=== PATIENT | female | born 1965 | race Caucasian/White ===

== ENCOUNTER 2016-08-18 23:44 | Emergency (ER) | payer BC ==
--- NOTE | 2016-08-18 23:58 | ER Document Report ---
ED Medical Screen (RME) - General Chief Complaint: Accidental Overdose Stated Complaint: POSSIBLE ACCIDENTAL OVERDOSE Notes: Pt reports she took a total of 58 units of novulog by 2315. (8 units at 2300, 50 at 2315) She was supposed to take lantus 50 units. Patient asymptomtic at this time. TRAVEL OUTSIDE OF THE [place] IN LAST 30 DAYS: No - Related Data Allergies/Adverse Reactions: No Known Allergies Allergy (Verified 06/29/15 13:26) Past Medical History - Past Medical History Cardiac Medical History: Reports: Hx Hypertension Endocrine Medical History: Reports: Hx Diabetes Mellitus Type 2 Past Surgical History: Reports: Hx Appendectomy - Immunizations Hx Diphtheria, Pertussis, Tetanus Vaccination: No Physical Exam - Vital signs Vitals: Temp Pulse Resp BP Pulse Ox 98.9 F 70 20 119/68 93 08/18/16 23:49 08/18/16 23:49 08/18/16 23:49 08/18/16 23:49 08/18/16 23:49 Course - Vital Signs Vital signs: Temp Pulse Resp BP Pulse Ox 98.9 F 70 20 119/68 93 08/18/16 23:49 08/18/16 23:49 08/18/16 23:49 08/18/16 23:49 08/18/16 23:49 - Laboratory Laboratory results interpreted by me: 08/19/16 00:18 POC Glucose 201 H
--- NOTE | 2016-08-19 04:14 | ER Document Report ---
ED General - General Chief Complaint: Accidental Overdose Stated Complaint: POSSIBLE ACCIDENTAL OVERDOSE Notes: Patient is a 51-year-old female past medical history of type II diabetes with insulin dependency presents after accidentally self administering 50 units of NovoLog just prior to arrival. Patient states this is a mistake and she thought she was giving herself Lantus. She denies any symptoms at time of arrival. States that she drank a can of soda and ate a candy bar after realizing her mistake. She has never done for that this past and states that it was an honest mistake. She came to the emergency department as she did not want to go to bed as she lives alone is worried what would happen by herself. She has not contacted her primary care physician regarding today's concerns. TRAVEL OUTSIDE OF THE [place] IN LAST 30 DAYS: No - Related Data Allergies/Adverse Reactions: No Known Allergies Allergy (Verified 06/29/15 13:26) Past Medical History - General Information source: Patient - Social History Smoking Status: Current Every Day Smoker Frequency of alcohol use: None Drug Abuse: None Lives with: Alone Family History: Reviewed & Not Pertinent, Other - Mother with PE and father with CHF - Past Medical History Cardiac Medical History: Reports: Hx Hypertension Endocrine Medical History: Reports: Hx Diabetes Mellitus Type 2 Past Surgical History: Reports: Hx Appendectomy - Immunizations Hx Diphtheria, Pertussis, Tetanus Vaccination: No Review of Systems - Review of Systems Notes: Constitutional: Negative for fever. HENT: Negative for sore throat. Eyes: Negative for visual changes. Cardiovascular: Negative for chest pain. Respiratory: Negative for shortness of breath. Gastrointestinal: Negative for abdominal pain, vomiting or diarrhea. Genitourinary: Negative for dysuria. Musculoskeletal: Negative for back pain. Skin: Negative for rash. Neurological: Negative for headaches, weakness or numbness. 10 point ROS negative except as marked above and in HPI. Physical Exam - Vital signs Vitals: Temp Pulse Resp BP Pulse Ox 98.9 F 70 20 119/68 93 08/18/16 23:49 08/18/16 23:49 08/18/16 23:49 08/18/16 23:49 08/18/16 23:49 Interpretation: Normal Notes: PHYSICAL EXAMINATION: GENERAL: Well-appearing, well-nourished and in no acute distress. HEAD: Atraumatic, normocephalic. EYES: Pupils equal round and reactive to light, extraocular movements intact, sclera anicteric, conjunctiva are normal. ENT: nares patent, oropharynx clear without exudates. Moist mucous membranes. NECK: Normal range of motion, supple without lymphadenopathy LUNGS: Breath sounds clear to auscultation bilaterally and equal. No wheezes rales or rhonchi. HEART: Regular rate and rhythm without murmurs ABDOMEN: Soft, nontender, normoactive bowel sounds. No guarding, no rebound. No masses appreciated. EXTREMITIES: Normal range of motion, no pitting or edema. No cyanosis. NEUROLOGICAL: No focal neurological deficits. Moves all extremities spontaneously and on command. PSYCH: Normal mood, normal affect. SKIN: Warm, Dry, normal turgor, no rashes or lesions noted. Course - Re-evaluation Re-evalutation: 08/19/16 04:11 Patient presents with concerns of having axilla taken 50 units of NovoLog prior to arrival. States she met take her Lantus but realized afterwards it was her NovoLog. She denies any symptoms at time of arrival. We have been continuing [id number] glucose checks every 30 minutes. Patient's initial blood glucose is 282 over the course of 90 minutes did decrease into the low 100s. She did receive a meal tray here with return of her blood sugar to 151. Will continue to obtain every 30 minute Accu-Cheks to monitor for an abrupt decrease in her blood glucose. She'll be observed overnight to ensure that she does not go home and have an abrupt decrease in blood glucose. Care has been transferred to Dr. Olivares at this time. - Vital Signs Vital signs: Temp Pulse Resp BP Pulse Ox 98.9 F 70 20 119/68 93 08/18/16 23:49 08/18/16 23:49 08/18/16 23:49 08/18/16 23:49 08/18/16 23:49 - Laboratory Laboratory results interpreted by me: 08/19/16 08/19/16 08/19/16 00:18 01:20 03:06 POC Glucose 201 H 132 H 116 H 08/19/16 03:49 POC Glucose 151 H Discharge - Discharge Clinical Impression: Medication error, Hypoglycemia Condition: Fair Disposition: HOME, SELF-CARE Additional Instructions: Please follow-up with your primary care physician. Return if you develop any symptoms that are concerning to you. Please continue to check your blood sugar approximately every 2 hours later home. Please be sure to always read the label insulin prior to administering it to yourself.
[2016-08-19 06:43] VITALS: BP 112/88
== END 2016-08-19 06:05 | disposition home or self-care (01) ==
LOC: ER 23:44
DX: E11.649 Type 2 diabetes mellitus with hypoglycemia without coma (principal); Z79.4 Long term (current) use of insulin; F17.210 Nicotine dependence, cigarettes, uncomplicated
CPT/HCPCS: 82962; 99284

== ENCOUNTER 2016-08-20 14:08 | Inpatient (IN) | payer BC ==
[2016-08-20] MEDS ORDERED: DILTIAZEM HCL/D5W 125 MG/125 ML RTUINJ IV ONE (14:15)
--- NOTE | 2016-08-20 14:32 | ER Document Report ---
ED Cardiac - General Mode of Arrival: Medic Information source: Patient TRAVEL OUTSIDE OF THE [place] IN LAST 30 DAYS: No - HPI Patient complains to provider of: Chest pain Quality of pain: Pressure Cardiac risk factors: Diabetes Associated symptoms: Other - see narrative <MITCHELL PIMENTEL - Last Filed: 08/20/16 17:15> <SO GAN - Last Filed: 08/20/16 19:11> - General Stated Complaint: PALPITATIONS Notes: Patient is a 51 year old female that presents to the emergency department today with complaints of a heart racing sensation with associated chest pain. Patient is a very poor historian so history is limited. Patient states she has had a "cold" for a few months but she has recently noticed her heart beating fast with associated chest pressure. Patient states she has had associated with her above mentioned symptoms. (MITCHELL PIMENTEL) - Related Data Allergies/Adverse Reactions: No Known Allergies Allergy (Verified 08/19/16 04:33) Home Medications: Current Home Medications Acetaminophen [Tylenol Extra Strength 500 mg Tablet] 1,000 mg PO DAILYP PRN 05/27 [History] Albuterol Sulfate [Albuterol Sulfate 2.5mg/3 mL] 1 vial NEB RTQ4HP PRN 08/20/16 [History] Albuterol Sulfate [Proair HFA] 1 puff IH Q4HP PRN 08/20/16 [History] Amlodipine Besylate [Norvasc 10 mg Tablet] 10 mg PO DAILY 08/20/16 [History] Fluticasone Propionate [Flonase Nasal [place] 50 Mcg/[place] 16 gm] 1 spray NASL Q12 08/20/16 [History] Insulin Aspart [Novolog Flexpen] 11 units SQ QID 08/20/16 [History] Insulin Glargine,Hum.rec.anlog [Lantus Solostar] 40 units SQ DAILY 08/20/16 [ History] Prednisone 10 mg PO TID 08/20/16 [History] Sulfamethoxazole/Trimethoprim [Bactrim Ds Tablet] 1 tab PO MOWEFR@1000 08/20/16 [History] Past Medical History - General Information source: Patient, [facility] Records - Social History Smoking Status: Never Smoker Cigarette use (# per day): No Frequency of alcohol use: None Drug Abuse: None Lives with: Family Family History: Reviewed & Not Pertinent, Other - Mother with PE and father with CHF - Past Medical History Cardiac Medical History: Reports: Hx Hypertension Endocrine Medical History: Reports: Hx Diabetes Mellitus Type 2 Past Surgical History: Reports: Hx Appendectomy - Immunizations Hx Diphtheria, Pertussis, Tetanus Vaccination: No Hx Pneumococcal Vaccination: 08/11/15 <MITCHELL PIMENTEL - Last Filed: 08/20/16 17:15> Review of Systems - Review of Systems Constitutional: No symptoms reported EENT: No symptoms reported Cardiovascular: See HPI, Chest pain, Palpitations, Heart racing Respiratory: No symptoms reported Gastrointestinal: See HPI, Nausea Genitourinary: No symptoms reported Female Genitourinary: No symptoms reported Musculoskeletal: No symptoms reported Skin: No symptoms reported Hematologic/Lymphatic: No symptoms reported Neurological/Psychological: No symptoms reported -: Yes All other systems reviewed and negative <MITCHELL PIMENTEL - Last Filed: 08/20/16 17:15> Physical Exam - General General appearance: Alert In distress: None - HEENT Head: Normocephalic, Atraumatic Eyes: Normal Extraocular movements intact: Yes - Respiratory Respiratory status: Tachypnea Chest status: Nontender Breath sounds: Normal - Cardiovascular Rhythm: Irregularly irregular, Tachycardia - Abdominal Inspection: Obese Distension: No distension - Extremities General upper extremity: Normal inspection, Nontender. No: Edema General lower extremity: Normal inspection, Nontender. No: Edema - Neurological Neuro grossly intact: Yes Cognition: Normal Orientation: AAOx4 Speech: Normal Sensory: Normal - Psychological Associated symptoms: Normal affect, Normal mood - Skin Skin Temperature: Warm Skin Moisture: Dry Skin Color: Normal <MITCHELL PIMENTEL - Last Filed: 08/20/16 17:15> Course - Laboratory Result Diagrams: 08/20/16 14:44 08/20/16 14:44 <MITCHELL PIMENTEL - Last Filed: 08/20/16 17:15> - Laboratory Result Diagrams: 08/20/16 14:44 08/20/16 14:44 - Diagnostic Test Radiology reviewed: Image reviewed, Reports reviewed - Left lower lobe infiltrate, no PE, no heart failure. - EKG Interpretation by Ma EKG shows normal: Intervals, QRS Complexes, ST-T Waves. abnormal: [place] Rate: Tachycardia - 160 Rhythm: A.Fib [place]/QRS: Left axis deviation - Consults [place] Consulted provider: will come to ER <OS GAN - Last Filed: 08/20/16 19:11> - Re-evaluation Re-evalutation: 08/20/16 18:30 The patient's initial heart rate was 190 according to EMS. They gave 20 mg of Cardizem bolus, then Cardizem drip. On arrival her first EKG shows rate of 160. She stayed mostly in the 150 range. She was given 2 doses of Lopressor 2.5 mg IV, without any change in her heart rate. She has continued to be quite dyspneic, with a slightly elevated d-dimer, so a CT [place] was done showing a left lower lobe pneumonia which could not be seen on chest x-ray due to her size. There was no pulmonary embolus or other explanation for her symptoms. (SO GNA) - Vital Signs Vital signs: Temp Pulse Resp BP Pulse Ox 99.4 F 27 H 118/75 99 08/20/16 14:24 08/20/16 15:00 08/20/16 14:35 08/20/16 15:00 (SO GAN) - Laboratory Laboratory results interpreted by me: 08/20/16 08/20/16 08/20/16 14:44 14:44 14:44 WBC 1.6 L RDW 14.7 H Plt Count 126 L Band Neutrophils % 6 H Monocytes % (Manual) 31 H Abs Neuts (Manual) 0.8 L Abs Lymphs (Manual) 0.2 L D-Dimer Sodium 136.4 L Chloride 97 L Glucose 329 H NT-Pro-B Natriuret Pep 1090 H Total Protein 5.3 L Albumin 3.3 L Urine Protein Urine Glucose (UA) Urine Ketones Urine Blood Urine Urobilinogen 08/20/16 08/20/16 14:44 16:24 WBC RDW Plt Count Band Neutrophils % Monocytes % (Manual) Abs Neuts (Manual) Abs Lymphs (Manual) D-Dimer 0.85 H Sodium Chloride Glucose NT-Pro-B Natriuret Pep Total Protein Albumin Urine Protein 100 H Urine Glucose (UA) >=500 H Urine Ketones TRACE H Urine Blood SMALL H Urine Urobilinogen 4.0 H (SO GAN) Critical Care Note - Critical Care Note Total time excluding time spent on procedures (mins): 40 <SO GAN - Last Filed: 08/20/16 19:11> Discharge <MITCHELL PIMENTEL - Last Filed: 08/20/16 17:15> - Discharge Admitting Provider: Hospitalist Unit Admitted: IMCU <SO GAN - Last Filed: 08/20/16 19:11> - Discharge Clinical Impression: Atrial fibrillation with rapid ventricular response Left lower lobe pneumonia Qualifiers: Pneumonia type: due to unspecified organism Qualified Code(s): J18.1 - Lobar pneumonia, unspecified organism Neutropenia Qualifiers: Neutropenia type: unspecified Qualified Code(s): D70.9 - Neutropenia, unspecified Condition: Fair Disposition: ADMITTED INPATIENT Referrals: [Primary Care Provider] - Follow up as needed Scribe Attestation: 08/20/16 18:37 I personally performed the services described in the documentation, reviewed and edited the documentation which was dictated to the scribe in my presence, and it accurately records my words and actions. (SO GAN) Scribe Documentation - Scribe acting as scribe for :: Shyann <MITCHELL PIMENTEL - Last Filed: 08/20/16 17:15>
[2016-08-20] MEDS ORDERED: METOPROLOL TARTRATE PF/INJ 5 MG/5 ML SDV IV ONE (14:35)
[2016-08-20] MEDS ORDERED: ENOXAPARIN SODIUM INJ 120 MG/0.8 ML DISP.SYRIN SUBCUT ONE (14:49)
[2016-08-20 14:58] LABS: HEMATOCRIT 40.1 % (36.0-47.0); HEMOGLOBIN 13.6 g/dL (12.0-15.5); HGB HCT DIFFERENCE 0.7; MEAN CORPUSCULAR HEMOGLOBIN 29.1 pg (27.0-33.4); MEAN CORPUSCULAR VOLUME 86 fl (80-97); RED BLOOD COUNT 4.68 10^6/uL (3.72-5.28); RED CELL DISTRIBUTION WIDTH 14.7 % (11.5-14.0)
[2016-08-20 15:18] LABS: ALANINE AMINOTRANSFERASE 32 U/L (9-52); ALBUMIN 3.3 g/dL (3.5-5.0); ALKALINE PHOSPHATASE 49 U/L (38-126); ANION GAP 12 (5-19); ASPARTATE AMINO TRANSFERASE 18 U/L (14-36); BILIRUBIN,TOTAL 1.3 mg/dL (0.2-1.3); BLOOD UREA NITROGEN 17 mg/dL (7-20); CALCIUM 9.2 mg/dL (8.4-10.2); CARBON DIOXIDE 27 mmol/L (22-30); CHLORIDE 97 mmol/L (98-107); CREATINE KINASE 89 U/L (30-135); CREATININE RESULT 0.85 mg/dL (0.52-1.25); GLUCOSE 329 mg/dL (75-110); POTASSIUM 4.3 mmol/L (3.6-5.0); SODIUM 136.4 mmol/L (137-145); TOTAL PROTEIN 5.3 g/dL (6.3-8.2)
[2016-08-20 15:30] LABS: CREATINE KINASE MB 1.01 ng/mL (<4.55)
[2016-08-20 15:34] LABS: TROPONIN I < 0.012 ng/mL
[2016-08-20 15:35] LABS: BAND NEUTROPHILS % (MANUAL) 6 % (3-5); BASOPHILS % (MANUAL) 0 % (0-2); EOSINOPHILS % (MANUAL) 1 % (0-6); LYMPHOCYTES % (MANUAL) 15 % (13-45); TOTAL CELLS COUNTED 100
[2016-08-20 15:39] LABS: ANISOCYTOSIS SLIGHT; POIKILOCYTOSIS SLIGHT; TOXIC GRANULATION SLIGHT
[2016-08-20 15:40] LABS: WHITE BLOOD COUNT 1.6 10^3/uL (4.0-10.5)
[2016-08-20 16:44] LABS: APPEARANCE,URINE SLIGHTLY-CLOUDY; BILIRUBIN,URINE NEGATIVE (NEGATIVE); GLUCOSE, URINE >=500 mg/dL (NEGATIVE); KETONES,URINE TRACE mg/dL (NEGATIVE); LEUKOCYTE ESTERASE,URINE NEGATIVE (NEGATIVE); NITRITE,URINE NEGATIVE (NEGATIVE); PROTEIN,URINE 100 mg/dL (NEGATIVE); URINE SPECIFIC GRAVITY 1.035
--- NOTE | 2016-08-20 17:00 | EKG REPORT ---
SEVERITY:- ABNORMAL ECG - ATRIAL FIBRILLATION, V-RATE 123-211 VENTRICULAR PREMATURE COMPLEX BORDERLINE LEFT AXIS DEVIATION CONSIDER ANTERIOR INFARCT : Confirmed by: Katarzyna Rosas MD 20-Aug-2016 16:59:01
[2016-08-20] MEDS ORDERED: IMIPENEM/CILASTATIN SODIUM INJ 500 MG VIAL IV ONE (18:24)
[2016-08-20] MEDS ORDERED: VANCOMYCIN HCL INJ 1000 MG VIAL IV ONE (18:25)
[2016-08-20] MEDS ORDERED: LEVOFLOXACIN 750 MG TABLET PO ONE (18:28)
[2016-08-20] MEDS ORDERED: DILTIAZEM HCL/D5W 125 ML IV PRN (19:04)
[2016-08-20] MEDS ORDERED: DEXTROSE 50%-WATER 25 GM/50 ML DISP.SYRIN IV PRN ×2 (19:06)
[2016-08-20] MEDS ORDERED: GLUCAGON,HUMAN RECOMB 1 MG INJ IM PRN (19:06)
[2016-08-20] MEDS ORDERED: DEXTROSE 40% GEL 15 GM TUBE PO PRN ×2 (19:06)
--- NOTE | 2016-08-20 19:12 | PDOC H&P ---
[id number] of: Shortness of breath History of Present Illness: ANGELA PILLAI is a 51 year old female with a history of Joana's granulomatosis, hypertension and diabetes, has been dealing with shortness of breath mainly exertional for the past few months. The patient had repeated visits with primary care physician and emergency room. She has taken antibiotics. Recently she started to develop fever and increasing coughing but no hemoptysis. Denies any wheezing. Shortness of breath got worse. Denies any chest pain. She started to develop some palpitation but no lightheadedness or dizziness. It has worsened therefore she presents to the hospital. She was found to be in atrial fibrillation with rapid ventricular response. She was started on Cardizem drip and actually heart rate increased further and intravenous beta jory was added. Patient was referred for admission. CT of the chest did not reveal any pulmonary embolism but revealed left lower lobe infiltrate and pneumonia. Patient likewise was neutropenic. Broad-spectrum antibiotics were given. Supplemental oxygen was placed. Past Medical History Cardiac Medical History: Reports: Hypertension Pulmonary Medical History: Reports: Other - Joana's granulomatosis Endocrine Medical History: Reports: Diabetes Mellitus Type 2 - Insulin-requiring Past Surgical History Past Surgical History: Reports: Appendectomy, Other - Lung biopsy Social History Lives with: Family Smoking Status: Never Smoker Frequency of Alcohol Use: None Hx Recreational Drug Use: No Drugs: None Family History Family History: Other - Mother with PE and father with CHF, autoimmune disorders Parental Family History Reviewed: Yes Children Family History Reviewed: Yes Sibling(s) Family History Reviewed.: Yes Medication/Allergy Home Medications: Acetaminophen [Tylenol Extra Strength 500 mg Tablet] 1,000 mg PO DAILYP PRN 05/27 Albuterol Sulfate [Albuterol Sulfate 2.5mg/3 mL] 1 vial NEB RTQ4HP PRN 08/20/16 Albuterol Sulfate [Proair HFA] 1 puff IH Q4HP PRN 08/20/16 Amlodipine Besylate [Norvasc 10 mg Tablet] 10 mg PO DAILY 08/20/16 Fluticasone Propionate [Flonase Nasal [place] 50 Mcg/[place] 16 gm] 1 spray NASL Q12 08/20/16 Insulin Aspart [Novolog Flexpen] 11 units SQ QID 08/20/16 Insulin Glargine,Hum.rec.anlog [Lantus Solostar] 40 units SQ DAILY 08/20/16 Prednisone 10 mg PO TID 08/20/16 Sulfamethoxazole/Trimethoprim [Bactrim Ds Tablet] 1 tab PO MOWEFR@1000 08/20/16 Allergies/Adverse Reactions: No Known Allergies Allergy (Verified 08/19/16 04:33) Review of Systems Constitutional: PRESENT: chills, fever(s), weakness - Generalized. ABSENT: headache(s), weight gain, weight loss Eyes: ABSENT: visual disturbances Ears: ABSENT: hearing changes Nose, Mouth, and Throat: ABSENT: mouth pain, sore throat Cardiovascular: PRESENT: dyspnea on exertion, edema - With higher doses of steroids, palpitations. ABSENT: chest pain, orthropnea Respiratory: PRESENT: cough, dyspnea, sputum - Mostly dry. ABSENT: hemoptysis Gastrointestinal: ABSENT: abdominal pain, constipation, diarrhea, dysphagia, hematemesis, hematochezia, melena, nausea, vomiting Genitourinary: ABSENT: difficulty urinating, dysuria, hematuria Musculoskeletal: ABSENT: joint swelling Integumentary: PRESENT: rash - Both lower extremities. Chronic leg ulcers that are healing. ABSENT: pruritus, wounds Neurological: ABSENT: abnormal gait, abnormal speech, confusion, dizziness, focal weakness, syncope Psychiatric: ABSENT: anxiety, depression, homidical ideation, suicidal ideation Endocrine: ABSENT: cold intolerance, heat intolerance, polydipsia, polyuria Hematologic/Lymphatic: ABSENT: easy bleeding, easy bruising Physical Exam Vital Signs: Temp Pulse Resp BP Pulse Ox 99.4 F 27 H 118/75 99 08/20/16 14:24 08/20/16 15:00 08/20/16 14:35 08/20/16 15:00 General appearance: PRESENT: mild distress, morbidly obese Head exam: PRESENT: atraumatic, normocephalic Eye exam: PRESENT: conjunctiva pink, EOMI, PERRLA. ABSENT: scleral icterus Ear exam: PRESENT: normal external ear exam. ABSENT: drainage Mouth exam: PRESENT: dry mucosa, neck supple, tongue midline Throat exam: ABSENT: post pharyngeal erythema, tonsillar erythema, tonsillar exudate Neck exam: ABSENT: carotid bruit, JVD, lymphadenopathy, thyromegaly Respiratory exam: PRESENT: rhonchi - Scattered bilateral, mild, unlabored. ABSENT: rales, wheezes Cardiovascular exam: PRESENT: irregular rhythm, +S1, +S2. ABSENT: diastolic murmur, rubs, systolic murmur Pulses: PRESENT: normal dorsalis pedis pul Vascular exam: PRESENT: normal capillary refill GI/Abdominal exam: PRESENT: normal bowel sounds, soft. ABSENT: distended, guarding, mass, organolmegaly, rebound, tenderness Rectal exam: PRESENT: deferred Extremities exam: PRESENT: full ROM. ABSENT: calf tenderness, clubbing, pedal edema Neurological exam: PRESENT: alert, awake, oriented to person, oriented to place , oriented to time, oriented to situation Psychiatric exam: PRESENT: appropriate affect, normal mood. ABSENT: homicidal ideation, suicidal ideation Skin exam: PRESENT: dry, intact, warm. ABSENT: cyanosis, rash Results Laboratory Results: 08/20/16 14:44 08/20/16 14:44 08/20/16 08/20/16 08/20/16 14:44 14:44 16:24 WBC 1.6 L RBC 4.68 Hgb 13.6 Hct 40.1 MCV 86 MCH 29.1 MCHC 34.0 RDW 14.7 H Plt Count 126 L Seg Neutrophils % Not Reportable Lymphocytes % Not Reportable Monocytes % Not Reportable Eosinophils % Not Reportable Basophils % Not Reportable Absolute Neutrophils Not Reportable Absolute Lymphocytes Not Reportable Absolute Monocytes Not Reportable Absolute Eosinophils Not Reportable Absolute Basophils Not Reportable Sodium 136.4 L Potassium 4.3 Chloride 97 L Carbon Dioxide 27 Anion Gap 12 BUN 17 Creatinine 0.85 Est GFR ( Amer) > 60 Est GFR (Non-Af Amer) > 60 Glucose 329 H Calcium 9.2 Total Bilirubin 1.3 AST 18 ALT 32 Alkaline Phosphatase 49 Total Protein 5.3 L Albumin 3.3 L Urine Color YELLOW Urine Appearance SLIGHTLY-CLOUDY Urine pH 5.0 Ur Specific [place] 1.035 Urine Protein 100 H Urine Glucose (UA) >=500 H Urine Ketones TRACE H Urine Blood SMALL H Urine Nitrite NEGATIVE Ur Leukocyte Esterase NEGATIVE Urine WBC (Auto) 5 Urine RBC (Auto) 3 08/20/16 08/20/16 14:44 14:44 Creatine Kinase 89 CK-MB (CK-2) 1.01 Troponin I < 0.012 NT-Pro-B Natriuret Pep 1090 H Impressions: Chest X-Ray 08/20/16 14:33 IMPRESSION: NO ACUTE RADIOGRAPHIC FINDING IN THE CHEST. Chest/Abdomen CTA 08/20/16 16:44 IMPRESSION: 1. No evidence pulmonary embolus. 2. Left lower lobe pneumonia. 3. Mild mediastinal adenopathy likely reactive. 3 month follow-up chest CT is recommended. 4. Stable 3 cm right adrenal mass likely adenoma. Assessment & Plan - Diagnosis (1) Sepsis Qualifiers: Sepsis type: sepsis due to unspecified organism Qualified Code(s): A41.9 - Sepsis, unspecified organism Is this a current diagnosis for this admission?: Yes (2) Atrial fibrillation with rapid ventricular response Is this a current diagnosis for this admission?: Yes (3) Left lower lobe pneumonia Qualifiers: Pneumonia type: due to unspecified organism Qualified Code(s): J18.1 - Lobar pneumonia, unspecified organism Is this a current diagnosis for this admission?: Yes (4) Neutropenia Qualifiers: Neutropenia type: unspecified Qualified Code(s): D70.9 - Neutropenia, unspecified Is this a current diagnosis for this admission?: Yes (5) Thrombocytopenia Is this a current diagnosis for this admission?: Yes (6) Type 1 diabetes mellitus with hyperglycemia, with long-term current use of insulin Is this a current diagnosis for this admission?: Yes (7) Abnormal urinalysis Is this a current diagnosis for this admission?: Yes (8) [place] granulomatosis Is this a current diagnosis for this admission?: Yes (9) Hypertension Qualifiers: Hypertension type: essential hypertension Qualified Code(s): I10 - Essential (primary) hypertension Is this a current diagnosis for this admission?: Yes (10) Adrenal mass Is this a current diagnosis for this admission?: Yes - Time Time Spent: 50 to 70 Minutes Anticipated discharge: Home - Inpatient Certification Based on my medical assessment, after consideration of the patient's comorbidities, presenting symptoms, or acuity I expect that the services needed warrant INPATIENT care.: Yes I certify that my determination is in accordance with my understanding of Medicare's requirements for reasonable and necessary INPATIENT services [42 CFR 412.3e].: Yes Medical Necessity: Significant Comorbidiites Make Outpatient Treatment Too Risky , Need Close Monitoring Due to Risk of Patient Decompensation, Need For IV Fluids, Need For Continuous Telemetry Monitoring, Need for IV Antibiotics, Risk of Complication if Not Cared For in Hospital, Risk of Diagnosis Which Will Require Inpatient Eval/Care/Monitoring Post Hospital Care: D/C Powder Mixer Documentation - Plan Summary Plan Summary: The patient will be admitted to ICU. We will give him boluses of normal saline and keep IV hydration. We will continue the Cardizem drip. Consult cardiology for further evaluation and management. In the meantime I will put the patient on stress dose of steroids. We will begin broad-spectrum antibiotics with Primaxin, Levaquin and vancomycin. We will consult hematology for the neutropenia. DVT prophylaxis with Lovenox will be placed. We will monitor platelet count. I will give the patient bronchodilators as needed. Sliding scale insulin will also be added. Further testing depends on initial evaluation as outlined above.
[2016-08-20] MEDS ORDERED: IMIPENEM/CILASTATIN SODIUM INJ 500 MG VIAL IV SCH (19:15)
[2016-08-20] MEDS ORDERED: DIGOXIN 0.25 MG TABLET PO ONE (19:45)
--- NOTE | 2016-08-20 19:47 | PDOC CONSULTATION ---
Consultation Consult Date: 08/20/16 Attending physician:: POORNIMA MENDOZA Consult reason:: Atrial fibrillation with rapid ventricular response History of Present Illness Admission Date/PCP: 08/20/16 19:14 Alayna Levin Patient complains of: Shortness of breath and palpitations History of Present Illness: ANGELA PILLAI is a 51 year old female, who is being admitted through the emergency department with symptoms of fever, shaking chills, cough and shortness of breath. While being monitored in the emergency room, she is noted to have atrial fibrillation with rapid ventricular response. I been asked to evaluate this patient. Her heart rate currently in the 130 to 150 range. She is denying any chest pain as such. She claims that she had transient atrial fibrillation in the past. She denied any other cardiac history. Past Medical History Cardiac Medical History: Reports: Hypertension Endocrine Medical History: Reports: Diabetes Mellitus Type 2 Past Surgical History Past Surgical History: Reports: Appendectomy Social History Information Source: Patient Lives with: Family Smoking Status: Never Smoker - Advance Directive Resuscitation Status: Full Code - Patient's sister by the name of jameson in [place] is the surrogate decision maker Surrogate healthcare decision maker:: Patient's sister by the name of jameson in [place] is the surrogate decision maker Family History Family History: Reviewed & Not Pertinent, Other - Mother with PE and father with CHF Parental Family History Reviewed: Yes Children Family History Reviewed: Yes Sibling(s) Family History Reviewed.: Yes - Negative for premature coronary artery disease or sudden cardiac in the family amongst first degree relatives. Medication/Allergy Home Medications: Acetaminophen [Tylenol Extra Strength 500 mg Tablet] 1,000 mg PO DAILYP PRN 05/27 Albuterol Sulfate [Albuterol Sulfate 2.5mg/3 mL] 1 vial NEB RTQ4HP PRN 08/20/16 Albuterol Sulfate [Proair HFA] 1 puff IH Q4HP PRN 08/20/16 Amlodipine Besylate [Norvasc 10 mg Tablet] 10 mg PO DAILY 08/20/16 Fluticasone Propionate [Flonase Nasal [place] 50 Mcg/[place] 16 gm] 1 spray NASL Q12 08/20/16 Insulin Aspart [Novolog Flexpen] 11 units SQ QID 08/20/16 Insulin Glargine,Hum.rec.anlog [Lantus Solostar] 40 units SQ DAILY 08/20/16 Prednisone 10 mg PO TID 08/20/16 Sulfamethoxazole/Trimethoprim [Bactrim Ds Tablet] 1 tab PO MOWEFR@1000 08/20/16 Azathioprine [Azathioprine] 50 mg PO TID 08/21/16 Metformin HCl [Metformin HCl ER] 500 mg PO QPM 08/21/16 Potassium Chloride 10 meq PO DAILY 08/21/16 Allergies/Adverse Reactions: No Known Allergies Allergy (Verified 08/19/16 04:33) Review of Systems Review of Systems: Please see history of present illness and past medical history as wall. Constitutional: fever or chills reported. Head : No recent chronic headaches, recent head injury. Eyes: No recent eye pain, diplopia, redness, discharge, acute visual changes. Ears: No recent chronic ear pain, acute hearing loss, ear discharge. Oral cavity: No recent ulcerations, bleeding, oral cavity discomfort. Neck: No recent acute neck pain reported. Hematologic: No recent easy bruising or bleeding or hematologic malignancy reported. Lymphatic: No recent lymphatic malignancy, chronic lymphadenopathy reported yet Cardiovascular system review: See history of present illness. Respiratory system review: Describes cough with sputum production but no hemoptysis, blood clots in the lungs reported. Mild Shortness of breath on exertion. Currently short of breath at rest. Gastrointestinal system review: Negative for any recent acute or chronic abdominal pain, hematemesis, melena, recent change in bowel habits. Genitourinary system review: No recent acute or chronic hematuria, flank pain, UTI etc. reported. Skin system review: Negative for any recent abnormal bruising, no rash, no pruritus reported. Neurologic: No prior history of strokes, mini strokes, seizure disorder. Psychologic: No history of major psychosis or depression reported. Musculoskeletal: Minor aches and pains reported. No acute joint swelling reported. Endocrine: No recent polyuria, polydipsia, recent heat or cold intolerance. Physical Exam Vital Signs: Temp Pulse Resp BP Pulse Ox 99.4 F 27 H 118/75 99 08/20/16 14:24 08/20/16 15:00 08/20/16 14:35 08/20/16 15:00 Intake & Output 08/19/16 08/20/16 08/21/16 06:59 06:59 06:59 Weight 112.037 kg Exam: GENERAL: well-nourished and in mild respiratory distress. Alert and oriented x3 HEAD: Atraumatic, normocephalic. EYES: Pupils equal round and reactive to light, extraocular movements intact, sclera anicteric, conjunctiva are normal. ENT: TMs normal, nares patent, oropharynx clear without exudates. Moist mucous membranes. No oral ulcerations or bleeding gums noted NECK: supple without lymphadenopathy. Trachea is central. No cervical or axillary lymphadenopathy noted. Carotids are 2+, JVD WNL LUNGS: Respiration seems nonlabored, no significant accessory muscle action noted. Right-sided and left-sided coarse crackles with mild wheezing and mild dullness noted in left base. CHEST: Palpation of the chest wall shows no significant chest wall tenderness or abnormalities. 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 ABDOMEN: Soft, no significant tenderness appreciated, normoactive bowel sounds. No guarding, no rebound. No rigidity noted . No masses appreciated. EXTREMITIES: Pedal pulses are 1-2+, no calf tenderness noted. No clubbing or cyanosis.1+ pedal edema noted NEUROLOGICAL: Focused neurological exam showed no significant neurologic deficit. Normal speech, no focal weakness appreciated. PSYCH: Normal mood, normal affect. Judgment and insight within normal limits. SKIN: No significant ecchymosis, rash, venous stasis ulceration noted left leg noted. MUSCULOSKELETAL EXAM: No significant joint swelling noted. Results EKG Comments: Shows atrial fibrillation with rapid ventricular response. No acute ST-T wave changes are noted. Impressions: Chest X-Ray 08/20/16 14:33 IMPRESSION: NO ACUTE RADIOGRAPHIC FINDING IN THE CHEST. Chest/Abdomen CTA 08/20/16 16:44 IMPRESSION: 1. No evidence pulmonary embolus. 2. Left lower lobe pneumonia. 3. Mild mediastinal adenopathy likely reactive. 3 month follow-up chest CT is recommended. 4. Stable 3 cm right adrenal mass likely adenoma. Assessment & Plan - Diagnosis (1) Hypertension Qualifiers: Hypertension type: essential hypertension Qualified Code(s): I10 - Essential (primary) hypertension Is this a current diagnosis for this admission?: Yes (2) Left lower lobe pneumonia Qualifiers: Pneumonia type: due to unspecified organism Qualified Code(s): J18.1 - Lobar pneumonia, unspecified organism Is this a current diagnosis for this admission?: Yes (3) Neutropenia Qualifiers: Neutropenia type: unspecified Qualified Code(s): D70.9 - Neutropenia, unspecified Is this a current diagnosis for this admission?: Yes (4) Sepsis Qualifiers: Sepsis type: sepsis due to unspecified organism Qualified Code(s): A41.9 - Sepsis, unspecified organism Is this a current diagnosis for this admission?: Yes (5) Atrial fibrillation with rapid ventricular response Is this a current diagnosis for this admission?: Yes (6) Wegeners granulomatosis Is this a current diagnosis for this admission?: Yes - Notes Notes: Patient has atrial fibrillation with rapid ventricular response. Currently on Cardizem drip at 10 mg an hour. Patient still having rapid heart beat. Have given orders for patient to receive additional 10 mg of Cardizem IV and digoxin 0.25 mg IV. Have increased Cardizem drip to 15 mg per hour. If needed could be increased to maximum of 20 mg/h after giving bolus of 10 mg IV. May also consider adding beta jory or IV amiodarone if needed for rate control. We will also give additional digoxin. Would recommend broad spectrum antibiotics and close observation for any respiratory, peripheral circulatory failure from septic shock etc. We will order a 2-D echo for morning. Overall prognosis is guarded. - Time Time Spent: 30 to 50 Minutes Medications reviewed and adjusted accordingly: Yes
[2016-08-20] MEDS ORDERED: DIGOXIN INJ 0.5 MG/2 ML AMPULE IV ONE (20:00)
[2016-08-20] MEDS ORDERED: DILTIAZEM HCL INJ 25 MG/5 ML VIAL IV ONE (20:00)
[2016-08-20] MEDS ORDERED: ENOXAPARIN SODIUM INJ 40 MG/0.4 ML DISP.SYRIN SUBCUT ONE (20:30)
[2016-08-20] MEDS: HYDROCORTISONE SOD SUCCINATE INJ/PF 100 MG/2 ML SDV IV SCH (20:45)
[2016-08-20] MEDS: NORMAL SALINE 1000 ML 1,000 ML IV PRN (20:45)
[2016-08-20] MEDS ORDERED: PROMETHAZINE HCL INJ 25 MG/1 ML VIAL IV PRN (20:45)
[2016-08-20 21:23] LABS: ADD ON TESTING BLD IN LAB ACKNOWLEDGE
[2016-08-20] MEDS: INSULIN REG, HUMAN 100 UNIT/ML 3 ML VIAL (PYX) SUBCUT PRN (21:24)
[2016-08-20 21:37] LABS: MAGNESIUM 1.7 mg/dL (1.6-2.3)
[2016-08-20] MEDS: FLUTICASONE NASAL SPRAY 50 MCG/SPRY 120 SPRAY/16 GM NASL SCH (22:57)
[2016-08-20] MEDS: ACETAMINOPHEN 325 MG TABLET PO PRN (23:15)
[2016-08-20] MEDS: IMIPENEM/CILASTATIN SODIUM 500 MG in NORMAL SALINE 100 ML IV SCH (23:31)
[2016-08-21] MEDS: NORMAL SALINE 1000 ML 1,000 ML IV PRN ×2 (02:30→20:37)
[2016-08-21] MEDS: HYDROCORTISONE SOD SUCCINATE INJ/PF 100 MG/2 ML SDV IV SCH ×4 (02:30→20:36)
[2016-08-21 04:00] LABS: HEMATOCRIT 35.8 % (36.0-47.0); HEMOGLOBIN 11.9 g/dL (12.0-15.5); HGB HCT DIFFERENCE -0.1; MEAN CORPUSCULAR HEMOGLOBIN 28.7 pg (27.0-33.4); MEAN CORPUSCULAR HGB CONC 33.4 g/dL (32.0-36.0); MEAN CORPUSCULAR VOLUME 86 fl (80-97); RED BLOOD COUNT 4.16 10^6/uL (3.72-5.28); RED CELL DISTRIBUTION WIDTH 14.7 % (11.5-14.0)
[2016-08-21 04:01] LABS: WHITE BLOOD COUNT 2.7 10^3/uL (4.0-10.5)
[2016-08-21] MEDS: VANCOMYCIN HCL 1,000 MG in DEXTROSE 5%-WATER 250 ML IV SCH ×2 (05:44→20:36)
[2016-08-21] MEDS: LANSOPRAZOLE 30 MG TAB.RAP.DR PO SCH ×2 (05:44→17:57)
[2016-08-21] MEDS: IMIPENEM/CILASTATIN SODIUM 500 MG in NORMAL SALINE 100 ML IV SCH ×3 (05:45→19:11)
[2016-08-21] MEDS: ENOXAPARIN SODIUM INJ 40 MG/0.4 ML DISP.SYRIN SUBCUT SCH (07:41)
[2016-08-21] MEDS: INSULIN REG, HUMAN 100 UNIT/ML 3 ML VIAL (PYX) SUBCUT PRN ×4 (07:42→22:52)
[2016-08-21 07:48] LABS: ANION GAP 10 (5-19); BLOOD UREA NITROGEN 21 mg/dL (7-20); CALCIUM 8.5 mg/dL (8.4-10.2); CARBON DIOXIDE 23 mmol/L (22-30); CHLORIDE 103 mmol/L (98-107); CREATININE RESULT 0.73 mg/dL (0.52-1.25); GLUCOSE 256 mg/dL (75-110); POTASSIUM 4.2 mmol/L (3.6-5.0); SODIUM 136.4 mmol/L (137-145)
[2016-08-21] MEDS ORDERED: NORMAL SALINE 1000 ML 1,000 ML IV ONE (08:51)
[2016-08-21 08:53] LABS: BASOPHILS % (MANUAL) 0 % (0-2); EOSINOPHILS % (MANUAL) 0 % (0-6); LYMPHOCYTES % (MANUAL) 6 % (13-45); TOTAL CELLS COUNTED 100
[2016-08-21 09:01] LABS: ANISOCYTOSIS SLIGHT; BAND NEUTROPHILS % (MANUAL) 18 % (3-5); TOXIC GRANULATION 1+; TOXIC VACUOLATION PRESENT
[2016-08-21] MEDS ORDERED: INSULIN GLARGINE,HUM.REC.ANLOG 300 UNIT/3 ML INSULN.PEN SUBCUT SCH (10:00)
[2016-08-21] MEDS ORDERED: VANCOMYCIN HCL INJ 1000 MG VIAL IV SCH (10:00)
[2016-08-21] MEDS ORDERED: DILTIAZEM HCL 30 MG TABLET PO ONE (10:00)
[2016-08-21] MEDS: AZATHIOPRINE 50 MG TABLET PO SCH ×3 (10:24→18:19)
[2016-08-21] MEDS: FLUTICASONE NASAL SPRAY 50 MCG/SPRY 120 SPRAY/16 GM NASL SCH ×2 (10:32→22:53)
[2016-08-21 13:29] LABS: PATH REVIEW PATHOLOGIST REVIEWED
[2016-08-21 13:30] LABS: PATH REVIEW PATHOLOGIST REVIEWED
[2016-08-21] MEDS: DILTIAZEM HCL 30 MG TABLET PO SCH ×2 (14:28→20:36)
--- NOTE | 2016-08-21 16:29 | Physician Advisory Note ---
Physician Advisor ProgressNote .: [facility], I have reviewed the medical record for this patient. Physician Advisor Statement: Possible documentation opportunities if attending agrees: 1. "LLL PNA, most likely due to " [Gram-positive? Gram-neg, given chronic steroids/Joana's + neutropenia? specific organism?] 2. "possible sepsis, present on admission with tachypnea & leukopenia, due to PNA, ruled in/out" 3. "pancytopenia, likely due to " 4. "mild hypontremia, likely due to intravascular hypovolemia" r.e. SIRS/sepsis: Points to remember now: -In ICD-10, sepsis is coded separately from SIRS, so must specify 1 or the other. -If process is due to non-infectious cause, SIRS, present on admission, due to ____ can be documented & coded. -If there is suspected infection as cause, & pt is clearly sick, then sepsis can be documented & coded. -If no (+) cx, must document despite neg cxs, or coders are required to query for this. -If (+) cx, must document causative organism & any abx-resistances. Thanks for your help with documentation accuracy/specificity improvement! Hoda Kirk MD [facility] Physician Advisor, Fellow of [facility]
[2016-08-21] MEDS: INSULIN GLARGINE,HUM.REC.ANLOG 300 UNIT/3 ML INSULN.PEN SUBCUT SCH (17:57)
[2016-08-21] MEDS ORDERED: LEVOFLOXACIN 750 MG/D5W RTU 750 MG/150 ML RTUPB IV SCH (18:00)
--- NOTE | 2016-08-21 18:13 | CONSULTATION REPORT E ---
Consultation Report NAME: ANGELA PILLAI : 1965 AGE: 51Y DATE: 08/21/2016 610 A TO: MARY LOPEZ M.D. FROM: POORNIMA MENDOZA M.D. Requesting Physician HISTORY OF PRESENT ILLNESS: The patient is a 51-year-old who has a history of Joana's granulomatosis. She tells me that she is managed by Dr. Cruz at [facility]. She was admitted with symptoms of possible acute upper respiratory tract infection, possible sepsis. She has been started on antibiotics since hospitalization. On admission, she was noted to be neutropenic and also thrombocytopenic. She tells me she was started on azathioprine early last year and continues on azathioprine (Imuran). She was last seen by Dr. Cruz in June. At that time, she tells me that it was thought that she might need to be started on chemotherapy because of worsening of Joana's possibly involving vocal cords, possibly involving her lungs. She recently traveled to [place] to visit her sister, and her sister was hospitalized and she was with her sister in the hospital. She returned last weekend. She tells me that she started noticing worsening of her respiratory symptoms and could not breathe and so she came to the hospital. PAST MEDICAL HISTORY: Her past medical history is as listed above includes: 1. History of Joana's granulomatosis. 2. Diabetes. 3. High blood pressure. HOME MEDICATIONS: Medications she has been taking at home include: 1. Imuran. 2. Prednisone. 3. She was on Bactrim prophylaxis. She was last seen by her welding equipment sales representative who manages the Joana's granulomatosis in June. SOCIAL HISTORY: She does not smoke cigarettes. FAMILY HISTORY: Family history includes history of pulmonary embolism and also CHF. No autoimmune diseases. PHYSICAL EXAMINATION: GENERAL: On exam, she is a middle-aged woman. She is not acutely ill looking. She is tachypneic as she talks. EXTREMITIES: She has no peripheral adenopathy, lower extremity edema. ABDOMEN: Her liver and spleen are not palpably enlarged. LABORATORIES: White count is 1.6, hemoglobin 13.6, platelet count 126. BUN 17, creatinine 0.85. IMPRESSION AND PLAN: The patient is a 51-year-old woman with a history of Joana's granulomatosis on azathioprine and prednisone. I believe that her low blood counts could be a combination of factors including the underlying sepsis; however, given her mild thrombocytopenia as well as the low white count, I would suggest holding the azathioprine for now. I will contact her welding equipment sales representative to inform him about the holding of the azathioprine. If she is discharged when stable, I will be glad to follow her as an outpatient with regard to her blood count. I think you for this consultation and allowing me to be part of her care. DICTATING PHYSICIAN: MARY LOPEZ M.D. [id number] PHY#: [id number] ID: [id number] JOB#: [id number] ACCT: [id number] cc:MARY LOPEZ M.D. >
--- NOTE | 2016-08-21 19:33 | PDOC PROGRESS REPORT ---
Subjective Progress Note for:: 08/21/16 Subjective:: Patient seems to be doing better with gradual improvement. Pt is denying any chest arm or neck discomfort. Patient denying any PND, orthopnea. Patient denied any sustained palpitations, dizziness, syncope, near syncope. Patient denying any fever chills. Patient denying any other significant discomfort. Patient is persistent atrial fibrillation. Review of systems: Rest review of systems negative. Medications: Medications have been reviewed. Physical Exam Vital Signs: Temp Pulse Resp BP Pulse Ox 98.1 F 107 H 32 H 118/65 98 08/21/16 16:00 08/21/16 16:00 08/21/16 18:00 08/21/16 17:19 08/21/16 17:18 Intake & Output 08/20/16 08/21/16 08/22/16 06:59 06:59 06:59 Output Total 375 1060 Balance -375 -1060 Weight 113.9 kg 113.9 kg Exam: GENERAL: well-nourished and in mild respiratory distress. Alert and oriented x3 HEAD: Atraumatic, normocephalic. EYES: Pupils equal round and reactive to light, extraocular movements intact, sclera anicteric, conjunctiva are normal. ENT: TMs normal, nares patent, oropharynx clear without exudates. Moist mucous membranes. No oral ulcerations or bleeding gums noted NECK: supple without lymphadenopathy. Trachea is central. No cervical or axillary lymphadenopathy noted. Carotids are 2+, JVD WNL LUNGS: Respiration seems nonlabored, no significant accessory muscle action noted. Right-sided and left-sided coarse crackles with mild wheezing and mild dullness noted in left base. CHEST: Palpation of the chest wall shows no significant chest wall tenderness or abnormalities. 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 ABDOMEN: Soft, no significant tenderness appreciated, normoactive bowel sounds. No guarding, no rebound. No rigidity noted . No masses appreciated. EXTREMITIES: Pedal pulses are 1-2+, no calf tenderness noted. No clubbing or cyanosis.trace to 1+ pedal edema noted NEUROLOGICAL: Focused neurological exam showed no significant neurologic deficit. Normal speech, no focal weakness appreciated. PSYCH: Normal mood, normal affect. Judgment and insight within normal limits. SKIN: No significant ecchymosis, rash, venous stasis ulceration noted. MUSCULOSKELETAL EXAM: No significant joint swelling noted. Results Laboratory Results: 08/21/16 03:45 08/21/16 03:45 08/20/16 08/20/16 08/21/16 20:00 20:00 03:45 WBC 2.7 L D RBC 4.16 Hgb 11.9 L Hct 35.8 L MCV 86 MCH 28.7 MCHC 33.4 RDW 14.7 H Plt Count 112 L Seg Neutrophils % Not Reportable Lymphocytes % Not Reportable Monocytes % Not Reportable Eosinophils % Not Reportable Basophils % Not Reportable Absolute Neutrophils Not Reportable Absolute Lymphocytes Not Reportable Absolute Monocytes Not Reportable Absolute Eosinophils Not Reportable Absolute Basophils Not Reportable Sodium Potassium Chloride Carbon Dioxide Anion Gap BUN Creatinine Est GFR ( Amer) Est GFR (Non-Af Amer) Glucose Calcium Magnesium 1.7 TSH 1.14 08/21/16 03:45 WBC RBC Hgb Hct MCV MCH MCHC RDW Plt Count Seg Neutrophils % Lymphocytes % Monocytes % Eosinophils % Basophils % Absolute Neutrophils Absolute Lymphocytes Absolute Monocytes Absolute Eosinophils Absolute Basophils Sodium 136.4 L Potassium 4.2 Chloride 103 Carbon Dioxide 23 Anion Gap 10 BUN 21 H Creatinine 0.73 Est GFR ( Amer) > 60 Est GFR (Non-Af Amer) > 60 Glucose 256 H Calcium 8.5 Magnesium TSH Impressions: Chest X-Ray 08/20/16 14:33 IMPRESSION: NO ACUTE RADIOGRAPHIC FINDING IN THE CHEST. Chest/Abdomen CTA 08/20/16 16:44 IMPRESSION: 1. No evidence pulmonary embolus. 2. Left lower lobe pneumonia. 3. Mild mediastinal adenopathy likely reactive. 3 month follow-up chest CT is recommended. 4. Stable 3 cm right adrenal mass likely adenoma. Assessment & Plan - Diagnosis (1) Hypertension Qualifiers: Hypertension type: essential hypertension Qualified Code(s): I10 - Essential (primary) hypertension Is this a current diagnosis for this admission?: Yes (2) Left lower lobe pneumonia Qualifiers: Pneumonia type: due to unspecified organism Qualified Code(s): J18.1 - Lobar pneumonia, unspecified organism Is this a current diagnosis for this admission?: Yes (3) Neutropenia Qualifiers: Neutropenia type: unspecified Qualified Code(s): D70.9 - Neutropenia, unspecified Is this a current diagnosis for this admission?: Yes (4) Sepsis Qualifiers: Sepsis type: sepsis due to unspecified organism Qualified Code(s): A41.9 - Sepsis, unspecified organism Is this a current diagnosis for this admission?: Yes (5) Atrial fibrillation with rapid ventricular response Is this a current diagnosis for this admission?: Yes - Notes Notes: Hypertension: Blood pressure is actually on the low side but stable. Left lower lobe pneumonia: Continue antibiotic therapy. Neutropenia: Patient seen by hematology oncologist. Sepsis: Currently improved. Continue antibiotic. Atrial fibrillation: Now persistent. Will start patient on Multaq therapy. Recommend chronic anticoagulation. 2-D echocardiogram is pending - Time Time with patient: Greater than 35 minutes - CODE STATUS was discussed, patient remains full code. Surrogate decision-maker unchanged. Multiple medical problems were addressed.More than 50% of the time spent coordinating care, discussing management plans with involved caregivers. Management plans discussed with involved personnels. Medical decision making was of moderate severe complexity.
[2016-08-21] MEDS: LEVOFLOXACIN 750 MG/D5W RTU 750 MG/150 ML RTUPB IV SCH (22:52)
[2016-08-22] MEDS: IMIPENEM/CILASTATIN SODIUM 500 MG in NORMAL SALINE 100 ML IV SCH ×4 (00:57→16:53)
[2016-08-22] MEDS: DILTIAZEM HCL 30 MG TABLET PO SCH ×4 (02:36→21:21)
[2016-08-22] MEDS: HYDROCORTISONE SOD SUCCINATE INJ/PF 100 MG/2 ML SDV IV SCH (02:36)
[2016-08-22] MEDS: LANSOPRAZOLE 30 MG TAB.RAP.DR PO SCH ×2 (05:31→18:10)
[2016-08-22 06:20] LABS: ANION GAP 9 (5-19); BLOOD UREA NITROGEN 24 mg/dL (7-20); CALCIUM 9.2 mg/dL (8.4-10.2); CARBON DIOXIDE 23 mmol/L (22-30); CHLORIDE 104 mmol/L (98-107); CREATININE RESULT 0.67 mg/dL (0.52-1.25); GLUCOSE 279 mg/dL (75-110); POTASSIUM 4.3 mmol/L (3.6-5.0); SODIUM 135.8 mmol/L (137-145)
[2016-08-22 06:42] LABS: HEMATOCRIT 35.5 % (36.0-47.0); HEMOGLOBIN 12.1 g/dL (12.0-15.5); HGB HCT DIFFERENCE 0.8; MEAN CORPUSCULAR HEMOGLOBIN 28.9 pg (27.0-33.4); MEAN CORPUSCULAR HGB CONC 34.1 g/dL (32.0-36.0); MEAN CORPUSCULAR VOLUME 85 fl (80-97); RED CELL DISTRIBUTION WIDTH 14.7 % (11.5-14.0); WHITE BLOOD COUNT 4.5 10^3/uL (4.0-10.5)
[2016-08-22] MEDS: INSULIN REG, HUMAN 100 UNIT/ML 3 ML VIAL (PYX) SUBCUT PRN ×4 (08:05→22:09)
[2016-08-22] MEDS: ENOXAPARIN SODIUM INJ 40 MG/0.4 ML DISP.SYRIN SUBCUT SCH (08:06)
[2016-08-22] MEDS: VANCOMYCIN HCL 1,000 MG in DEXTROSE 5%-WATER 250 ML IV SCH ×2 (08:08→18:03)
[2016-08-22] MEDS: FLUTICASONE NASAL SPRAY 50 MCG/SPRY 120 SPRAY/16 GM NASL SCH ×2 (09:24→21:14)
--- NOTE | 2016-08-22 09:24 | PDOC PROGRESS REPORT ---
Subjective Progress Note for:: 08/22/16 Subjective:: She was feeling better. Slowly improving. Denies diarrhea. There is occasional pleurisy. Coughing is less however. No nausea or vomiting. No diaphoresis. Physical Exam Vital Signs: Temp Pulse Resp BP Pulse Ox 97.3 F 94 20 114/82 99 08/22/16 05:30 08/22/16 07:00 08/22/16 05:30 08/22/16 05:30 08/22/16 05:30 Intake & Output 08/21/16 08/22/16 08/23/16 06:59 06:59 06:59 Intake Total 1050 Output Total 375 1910 Balance -375 -860 Weight 113.9 kg 119.2 kg General appearance: PRESENT: no acute distress, cooperative, morbidly obese Eye exam: PRESENT: EOMI Mouth exam: PRESENT: moist, neck supple Neck exam: ABSENT: JVD Respiratory exam: PRESENT: decreased breath sounds, wheezes - few Cardiovascular exam: PRESENT: RRR. ABSENT: gallop GI/Abdominal exam: PRESENT: normal bowel sounds, soft. ABSENT: tenderness Extremities exam: PRESENT: +1 edema Neurological exam: PRESENT: alert, awake, oriented to situation Skin exam: ABSENT: cyanosis Results Laboratory Results: 08/22/16 05:45 08/22/16 05:45 08/21/16 08/22/16 08/22/16 03:45 05:45 05:45 WBC 2.7 L D 4.5 RBC 4.16 4.20 Hgb 11.9 L 12.1 Hct 35.8 L 35.5 L MCV 86 85 MCH 28.7 28.9 MCHC 33.4 34.1 RDW 14.7 H 14.7 H Plt Count 112 L 112 L Sodium 135.8 L Potassium 4.3 Chloride 104 Carbon Dioxide 23 Anion Gap 9 BUN 24 H Creatinine 0.67 Est GFR ( Amer) > 60 Est GFR (Non-Af Amer) > 60 Glucose 279 H Calcium 9.2 08/20/16 23:19 Sputum Gram Stain - Final Impressions: Chest X-Ray 08/20/16 14:33 IMPRESSION: NO ACUTE RADIOGRAPHIC FINDING IN THE CHEST. Chest/Abdomen CTA 08/20/16 16:44 IMPRESSION: 1. No evidence pulmonary embolus. 2. Left lower lobe pneumonia. 3. Mild mediastinal adenopathy likely reactive. 3 month follow-up chest CT is recommended. 4. Stable 3 cm right adrenal mass likely adenoma. Assessment & Plan - Diagnosis (1) Sepsis Qualifiers: Sepsis type: sepsis due to unspecified organism Qualified Code(s): A41.9 - Sepsis, unspecified organism Is this a current diagnosis for this admission?: Yes (2) Atrial fibrillation with rapid ventricular response Is this a current diagnosis for this admission?: Yes (3) Left lower lobe pneumonia Qualifiers: Pneumonia type: due to unspecified organism Qualified Code(s): J18.1 - Lobar pneumonia, unspecified organism Is this a current diagnosis for this admission?: Yes (4) Neutropenia Qualifiers: Neutropenia type: unspecified Qualified Code(s): D70.9 - Neutropenia, unspecified Is this a current diagnosis for this admission?: Yes (5) Thrombocytopenia Is this a current diagnosis for this admission?: Yes (6) Type 1 diabetes mellitus with hyperglycemia, with long-term current use of insulin Is this a current diagnosis for this admission?: Yes (7) Abnormal urinalysis Is this a current diagnosis for this admission?: Yes (8) Wegeners granulomatosis Is this a current diagnosis for this admission?: Yes (9) Hypertension Qualifiers: Hypertension type: essential hypertension Qualified Code(s): I10 - Essential (primary) hypertension Is this a current diagnosis for this admission?: Yes (10) Adrenal mass Is this a current diagnosis for this admission?: Yes - Time Time Spent with patient: 25-34 minutes - Plan Summary Plan Summary: Continue current antibiotics. At pressure is stable now. We will discontinue hydrocortisone and switch back to oral steroids. Begin physical therapy. Continue supportive care. Continue bronchodilators. Add Diflucan.
[2016-08-22] MEDS: PREDNISONE 10 MG TABLET PO SCH ×3 (11:55→18:12)
[2016-08-22] MEDS: FLUCONAZOLE 100 MG TABLET PO SCH (11:56)
[2016-08-22] MEDS: NORMAL SALINE 1000 ML 1,000 ML IV PRN (12:02)
--- NOTE | 2016-08-22 14:13 | PDOC CONSULTATION ---
Consultation Consult Date: 08/22/16 Consult reason:: Bilateral lower extremity wounds History of Present Illness Admission Date/PCP: 08/20/16 18:54 Alayna Levin History of Present Illness: 51-year-old diabetic patient currently the hospital for respiratory problems. She has been on intermittent steroids and apparently has developed generalized swelling in the past with the bilateral lower extremity edema resulting in the venous stasis ulcers. These ulcers markedly improved with compression dressings. However she has not been having compression dressings applied and she has not been elevating her legs. Past Medical History Cardiac Medical History: Reports: Hypertension Pulmonary Medical History: Reports: Other - Joana's granulomatosis Endocrine Medical History: Reports: Diabetes Mellitus Type 2 Past Surgical History Past Surgical History: Reports: Appendectomy, Other - Lung biopsy Social History Lives with: Family Smoking Status: Never Smoker Frequency of Alcohol Use: None Hx Recreational Drug Use: No Drugs: None Hx Prescription Drug Abuse: Yes - Advance Directive Resuscitation Status: Full Code - Patient's sister by the name of jameson in [place] is the surrogate decision maker Family History Family History: Reviewed & Not Pertinent, Other - Mother with PE and father with CHF Parental Family History Reviewed: No Children Family History Reviewed: No Sibling(s) Family History Reviewed.: No Medication/Allergy Home Medications: Acetaminophen [Tylenol Extra Strength 500 mg Tablet] 1,000 mg PO DAILYP PRN 05/27 Albuterol Sulfate [Albuterol Sulfate 2.5mg/3 mL] 1 vial NEB RTQ4HP PRN 08/20/16 Albuterol Sulfate [Proair HFA] 1 puff IH Q4HP PRN 08/20/16 Amlodipine Besylate [Norvasc 10 mg Tablet] 10 mg PO DAILY 08/20/16 Fluticasone Propionate [Flonase Nasal [place] 50 Mcg/[place] 16 gm] 1 spray NASL Q12 08/20/16 Insulin Aspart [Novolog Flexpen] 11 units SQ QID 08/20/16 Insulin Glargine,Hum.rec.anlog [Lantus Solostar] 40 units SQ DAILY 08/20/16 Prednisone 10 mg PO TID 08/20/16 Sulfamethoxazole/Trimethoprim [Bactrim Ds Tablet] 1 tab PO MOWEFR@1000 08/20/16 Azathioprine [Azathioprine] 50 mg PO TID 08/21/16 Metformin HCl [Metformin HCl ER] 500 mg PO QPM 08/21/16 Potassium Chloride 10 meq PO DAILY 08/21/16 Allergies/Adverse Reactions: No Known Allergies Allergy (Verified 08/19/16 04:33) Physical Exam Vital Signs: Temp Pulse Resp BP Pulse Ox 97.8 F 81 22 H 119/63 99 08/22/16 11:25 08/22/16 11:25 08/22/16 11:25 08/22/16 11:25 08/22/16 11:25 Intake & Output 08/21/16 08/22/16 08/23/16 06:59 06:59 06:59 Intake Total 1050 Output Total 375 1910 Balance -375 -860 Weight 113.9 kg 119.2 kg General appearance: PRESENT: no acute distress Respiratory exam: PRESENT: wheezes Cardiovascular exam: PRESENT: RRR Extremities exam: PRESENT: other - Bilateral lower extremity moderate edema with partial skin thickness ulceration above the medial malleolus on the right and at the anterior lower portion of the leg on the left. Results Laboratory Results: 08/22/16 05:45 08/22/16 05:45 08/22/16 08/22/16 05:45 05:45 WBC 4.5 RBC 4.20 Hgb 12.1 Hct 35.5 L MCV 85 MCH 28.9 MCHC 34.1 RDW 14.7 H Plt Count 112 L Sodium 135.8 L Potassium 4.3 Chloride 104 Carbon Dioxide 23 Anion Gap 9 BUN 24 H Creatinine 0.67 Est GFR ( Amer) > 60 Est GFR (Non-Af Amer) > 60 Glucose 279 H Calcium 9.2 08/20/16 23:19 Sputum Gram Stain - Final Impressions: Chest X-Ray 08/20/16 14:33 IMPRESSION: NO ACUTE RADIOGRAPHIC FINDING IN THE CHEST. Chest/Abdomen CTA 08/20/16 16:44 IMPRESSION: 1. No evidence pulmonary embolus. 2. Left lower lobe pneumonia. 3. Mild mediastinal adenopathy likely reactive. 3 month follow-up chest CT is recommended. 4. Stable 3 cm right adrenal mass likely adenoma. Assessment & Plan - Diagnosis (1) Venous stasis ulcers of both lower extremities Is this a current diagnosis for this admission?: YesPlan: We'll treat with the compression dressings and leg elevations.
[2016-08-22] MEDS: LEVALBUTEROL HCL NEB 1.25 MG/3 ML AMPUL NEB PRN ×2 (17:11→21:32)
[2016-08-22] MEDS: INSULIN GLARGINE,HUM.REC.ANLOG 300 UNIT/3 ML INSULN.PEN SUBCUT SCH (18:12)
[2016-08-22] MEDS: LEVOFLOXACIN 750 MG/D5W RTU 750 MG/150 ML RTUPB IV SCH (21:13)
[2016-08-23] MEDS: IMIPENEM/CILASTATIN SODIUM 500 MG in NORMAL SALINE 100 ML IV SCH ×3 (00:01→13:39)
[2016-08-23] MEDS: DILTIAZEM HCL 30 MG TABLET PO SCH ×4 (03:15→21:34)
[2016-08-23] MEDS: LANSOPRAZOLE 30 MG TAB.RAP.DR PO SCH ×2 (05:34→17:50)
[2016-08-23] MEDS: INSULIN REG, HUMAN 100 UNIT/ML 3 ML VIAL (PYX) SUBCUT PRN ×3 (07:59→17:52)
[2016-08-23] MEDS: VANCOMYCIN HCL 1,000 MG in DEXTROSE 5%-WATER 250 ML IV SCH (08:00)
[2016-08-23] MEDS: ENOXAPARIN SODIUM INJ 40 MG/0.4 ML DISP.SYRIN SUBCUT SCH (10:15)
[2016-08-23] MEDS: PREDNISONE 10 MG TABLET PO SCH ×2 (10:18→17:49)
[2016-08-23] MEDS: FLUCONAZOLE 100 MG TABLET PO SCH (10:19)
--- NOTE | 2016-08-23 10:21 | XCELERA REPORT ---
[address] [address] Transthoracic Echocardiogram Report Name: ANGELA PILLAI Age: 51 yrs Gender: Female : 1965 Patient Status: Inpatient Patient Location: [id number]\S\333\S\A Study Date: 08/22/2016 08:29 AM Height: 61 in Weight: 251 lb BSA: 2.1 m2 Procedure: A complete two-dimensional transthoracic echocardiogram was performed (2D, M-mode, spectral and color flow Doppler). The study was technically adequate with some images being suboptimal in quality. Reason For Study: Afib Ordering Physician: DESTIN PETERSON Performed By: John Rogers Interpretation Summary The left ventricular ejection fraction is normal. LV diastolic function could not be adequately assessed. There is borderline concentric left ventricular hypertrophy. The left ventricle is grossly normal size. Wall motion cannot be accurately commented on, but no definite regional wall motion abnormalities noted. The right ventricular systolic function is normal. The right atrium is normal in size The left atrium is mildly dilated. There is no mitral valve stenosis. There is a trace to mild amount of mitral regurgitation No aortic regurgitation is present. There is no aortic valve stenosis There is a trace to mild amount of tricuspid regurgitation There is mild pulmonary hypertension by echo Right ventricular systolic pressure is estimated to be elevated at 30- 40mmHg. The aortic root is not well visualized but is probably normal size. The inferior vena cava appeared normal and decreased < 50% with respiration (RAP 10-15 mmHg) There is no pericardial effusion. MMode/2D Measurements \T\ Calculations RVDd: 2.4 cm LVIDd: 4.6 cm FS: 25.4 % Ao root diam: 3.2 cm IVSd: 0.90 cm LVIDs: 3.4 cm EDV(Teich): 98.6 ml LVPWd: 0.92 cm ESV(Teich): 49.1 ml Ao root area: 8.1 cm2 EF(Teich): 50.2 % LA dimension: 4.4 cm Doppler Measurements \T\ Calculations MV E max josemanuel: MV P1/2t max josemanuel: Ao V2 max: LV V1 max P.1 cm/sec 130.8 cm/sec 108.6 cm/sec 2.5 mmHg MV P1/2t: 52.8 msec Ao max PG: LV V1 max: 4.7 mmHg 78.4 cm/sec MVA(P1/2t): 4.2 cm2 MV dec slope: 725.4 cm/sec2 MV dec time: 0.18 sec PA V2 max: TR max josemanuel: RAP systole: 69.6 cm/sec 245.4 cm/sec 10.0 mmHg PA max P.9 mmHgTR max P.1 mmHg RVSP(TR): 34.1 mmHg Left Ventricle The left ventricle is grossly normal size. There is borderline concentric left ventricular hypertrophy. The left ventricular ejection fraction is normal. LV diastolic function could not be adequately assessed. Wall motion cannot be accurately commented on, but no definite regional wall motion abnormalities noted. Right Ventricle The right ventricle is grossly normal size. There is normal right ventricular wall thickness. The right ventricular systolic function is normal. Atria The right atrium is normal in size. The left atrium is mildly dilated. Interarterial septum not well visualized and not well dopplered. Cannot comment on ASD/PFO presence. Mitral Valve The mitral valve is grossly normal. There is no mitral valve stenosis. There is a trace to mild amount of mitral regurgitation. Aortic Valve The aortic valve is grossly normal. There is no aortic valve stenosis. No aortic regurgitation is present. Tricuspid Valve The tricuspid valve is not well visualized, but is grossly normal. There is no tricuspid stenosis. There is a trace to mild amount of tricuspid regurgitation. There is mild pulmonary hypertension by echo. Right ventricular systolic pressure is estimated to be elevated at 30-40mmHg. Pulmonic Valve The pulmonic valve is not well visualized. Great Vessels The aortic root is not well visualized but is probably normal size. The inferior vena cava appeared normal and decreased < 50% with respiration (RAP 10-15 mmHg). Effusions There is no pericardial effusion. : DESTIN PETERSON > Destin Peterson
[2016-08-23] MEDS: GUAIFENESIN SYRP 200 MG/10 ML UDC PO PRN (10:22)
[2016-08-23] MEDS: FLUTICASONE NASAL SPRAY 50 MCG/SPRY 120 SPRAY/16 GM NASL SCH ×2 (10:23→21:34)
--- NOTE | 2016-08-23 11:34 | PDOC PROGRESS REPORT ---
Subjective Progress Note for:: 08/22/16 Subjective:: Patient seems to be doing better with gradual improvement. Pt is denying any chest arm or neck discomfort. Patient denying any PND, orthopnea. Patient denied any sustained palpitations, dizziness, syncope, near syncope. Patient denying any fever chills. Patient denying any other significant discomfort. Patient is in persistent atrial fibrillation. Patient complaining of shortness of breath on minimal exertion and some increased in heart rate. Patient is in persistent atrial fibrillation. Review of systems: Rest review of systems negative. Medications: Medications have been reviewed. Physical Exam Vital Signs: Temp Pulse Resp BP Pulse Ox 97.8 F 118 H 20 106/70 96 08/22/16 20:17 08/22/16 20:17 08/22/16 20:17 08/22/16 20:17 08/22/16 20:17 Intake & Output 08/21/16 08/22/16 08/23/16 06:59 06:59 06:59 Intake Total 1050 2201 Output Total 375 1910 875 Balance -375 -860 1326 Weight 113.9 kg 119.2 kg Exam: GENERAL: well-nourished and in no acute distress. Alert and oriented x3 HEAD: Atraumatic, normocephalic. EYES: Pupils equal round and reactive to light, extraocular movements intact, sclera anicteric, conjunctiva are normal. ENT: TMs normal, nares patent, oropharynx clear without exudates. Moist mucous membranes. No oral ulcerations or bleeding gums noted NECK: supple without lymphadenopathy. Trachea is central. No cervical or axillary lymphadenopathy noted. Carotids are 2+, JVD WNL LUNGS: Respiration seems nonlabored, no significant accessory muscle action noted. Bibasilar fine crackles are noted with occasional wheezes. No significant dullness noted on percussion. CHEST: Palpation of the chest wall shows no significant chest wall tenderness or abnormalities. 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 ABDOMEN: Soft, no significant tenderness appreciated, normoactive bowel sounds. No guarding, no rebound. No rigidity noted . No masses appreciated. EXTREMITIES: Pedal pulses are 1-2+, no calf tenderness noted. No clubbing or cyanosis.1+ pedal edema noted NEUROLOGICAL: Focused neurological exam showed no significant neurologic deficit. Normal speech, no focal weakness appreciated. PSYCH: Normal mood, normal affect. Judgment and insight within normal limits. SKIN: No significant ecchymosis, rash, venous stasis ulceration noted. MUSCULOSKELETAL EXAM: No significant joint swelling noted. Results Laboratory Results: 08/22/16 05:45 08/22/16 05:45 08/22/16 08/22/16 05:45 05:45 WBC 4.5 RBC 4.20 Hgb 12.1 Hct 35.5 L MCV 85 MCH 28.9 MCHC 34.1 RDW 14.7 H Plt Count 112 L Sodium 135.8 L Potassium 4.3 Chloride 104 Carbon Dioxide 23 Anion Gap 9 BUN 24 H Creatinine 0.67 Est GFR ( Amer) > 60 Est GFR (Non-Af Amer) > 60 Glucose 279 H Calcium 9.2 08/20/16 23:19 Sputum Gram Stain - Final Impressions: Chest X-Ray 08/20/16 14:33 IMPRESSION: NO ACUTE RADIOGRAPHIC FINDING IN THE CHEST. Chest/Abdomen CTA 08/20/16 16:44 IMPRESSION: 1. No evidence pulmonary embolus. 2. Left lower lobe pneumonia. 3. Mild mediastinal adenopathy likely reactive. 3 month follow-up chest CT is recommended. 4. Stable 3 cm right adrenal mass likely adenoma. Assessment & Plan - Diagnosis (1) Hypertension Qualifiers: Hypertension type: essential hypertension Qualified Code(s): I10 - Essential (primary) hypertension Is this a current diagnosis for this admission?: Yes (2) Left lower lobe pneumonia Qualifiers: Pneumonia type: due to unspecified organism Qualified Code(s): J18.1 - Lobar pneumonia, unspecified organism Is this a current diagnosis for this admission?: Yes (3) Neutropenia Qualifiers: Neutropenia type: unspecified Qualified Code(s): D70.9 - Neutropenia, unspecified Is this a current diagnosis for this admission?: Yes (4) Sepsis Qualifiers: Sepsis type: sepsis due to unspecified organism Qualified Code(s): A41.9 - Sepsis, unspecified organism Is this a current diagnosis for this admission?: Yes (5) Atrial fibrillation with rapid ventricular response Is this a current diagnosis for this admission?: Yes (6) Wegeners granulomatosis Is this a current diagnosis for this admission?: Yes - Notes Notes: Hypertension: Blood pressure is actually stable. Left lower lobe pneumonia: Continue antibiotic therapy. Neutropenia: Patient seen by hematology oncologist. This has improved. Sepsis: Currently improved. Continue antibiotic. Atrial fibrillation: Now persistent. Was considering Multaq therapy but patient has been on multiple medications which can prolong QTC. Recommend chronic anticoagulation. 2-D echocardiogram results were reviewed. Recommend rate control and chronic anticoagulation. This was discussed with Dr Munoz. General debility: Patient will benefit from rehabilitation. - Time Time with patient: 15-25 minutes - More than 50% of the time spent coordinating care, discussing management plans with involved caregivers. Management plans discussed with involved personnels. Medical decision making was of moderate complexity.
--- NOTE | 2016-08-23 11:42 | PDOC PROGRESS REPORT ---
Subjective Progress Note for:: 08/23/16 Subjective:: Patient seems to be doing better with gradual improvement. Pt is denying any chest arm or neck discomfort. Patient denying any PND, orthopnea. Patient denied any sustained palpitations, dizziness, syncope, near syncope. Patient denying any fever chills. Patient denying any other significant discomfort. Patient is in persistent atrial fibrillation. Patient complaining of shortness of breath on minimal exertion and some increased in heart rate. Review of systems: Rest review of systems negative. Medications: Medications have been reviewed. Physical Exam Vital Signs: Temp Pulse Resp BP Pulse Ox 97.8 F 101 H 18 111/62 99 08/23/16 08:20 08/23/16 10:34 08/23/16 10:34 08/23/16 08:00 08/23/16 10:34 Intake & Output 08/22/16 08/23/16 08/24/16 06:59 06:59 06:59 Intake Total 1050 3851 Output Total 1910 2375 Balance -860 1476 Weight 119.2 kg 122 kg Exam: GENERAL: well-nourished and in no acute distress. Alert and oriented x3 HEAD: Atraumatic, normocephalic. EYES: Pupils equal round and reactive to light, extraocular movements intact, sclera anicteric, conjunctiva are normal. ENT: TMs normal, nares patent, oropharynx clear without exudates. Moist mucous membranes. No oral ulcerations or bleeding gums noted NECK: supple without lymphadenopathy. Trachea is central. No cervical or axillary lymphadenopathy noted. Carotids are 2+, JVD WNL LUNGS: Respiration seems nonlabored, no significant accessory muscle action noted. Left basal crackles and mild dullness noted. Few wheezes noted left base. CHEST: Palpation of the chest wall shows no significant chest wall tenderness or abnormalities. 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 ABDOMEN: Soft, no significant tenderness appreciated, normoactive bowel sounds. No guarding, no rebound. No rigidity noted . No masses appreciated. EXTREMITIES: Pedal pulses are 1-2+, no calf tenderness noted. No clubbing or cyanosis.1-2+ pedal edema noted NEUROLOGICAL: Focused neurological exam showed no significant neurologic deficit. Normal speech, no focal weakness appreciated. PSYCH: Normal mood, normal affect. Judgment and insight within normal limits. SKIN: No significant ecchymosis, rash, venous stasis ulceration noted left leg. MUSCULOSKELETAL EXAM: No significant joint swelling noted. Results Laboratory Results: 08/22/16 05:45 08/22/16 05:45 08/20/16 23:19 Catheterized Urine Urine Culture - Final NO GROWTH 2 DAYS 08/20/16 23:19 Sputum Gram Stain - Final Impressions: Chest X-Ray 08/20/16 14:33 IMPRESSION: NO ACUTE RADIOGRAPHIC FINDING IN THE CHEST. Chest/Abdomen CTA 08/20/16 16:44 IMPRESSION: 1. No evidence pulmonary embolus. 2. Left lower lobe pneumonia. 3. Mild mediastinal adenopathy likely reactive. 3 month follow-up chest CT is recommended. 4. Stable 3 cm right adrenal mass likely adenoma. Assessment & Plan - Diagnosis (1) Hypertension Qualifiers: Hypertension type: essential hypertension Qualified Code(s): I10 - Essential (primary) hypertension Is this a current diagnosis for this admission?: Yes (2) Left lower lobe pneumonia Qualifiers: Pneumonia type: due to unspecified organism Qualified Code(s): J18.1 - Lobar pneumonia, unspecified organism Is this a current diagnosis for this admission?: Yes (3) Neutropenia Qualifiers: Neutropenia type: unspecified Qualified Code(s): D70.9 - Neutropenia, unspecified Is this a current diagnosis for this admission?: Yes (4) Sepsis Qualifiers: Sepsis type: sepsis due to unspecified organism Qualified Code(s): A41.9 - Sepsis, unspecified organism Is this a current diagnosis for this admission?: Yes (5) Atrial fibrillation with rapid ventricular response Is this a current diagnosis for this admission?: Yes (6) Wegeners granulomatosis Is this a current diagnosis for this admission?: Yes - Notes Notes: Hypertension: Blood pressure is actually stable. Left lower lobe pneumonia: Continue antibiotic therapy. Neutropenia: Patient seen by hematology oncologist. This has improved. Sepsis: Currently improved. Continue antibiotic. Atrial fibrillation: Now persistent. Have added Toprol-XL 12.5 mg by mouth twice a day. Recommend chronic anticoagulation. Based patient on ELIQUIS 5 mg by mouth twice a day. 2-D echocardiogram results were reviewed. Have ordered chemistry panel and a BNP level. Will recommend small dose of diuretics. General debility: Patient will benefit from rehabilitation. - Time Time with patient: 15-25 minutes - More than 50% of the time spent coordinating care, discussing management plans with involved caregivers. Management plans discussed with involved personnels. Medical decision making was of moderate complexity. Medications reviewed and adjusted accordingly: Yes
[2016-08-23] MEDS ORDERED: METOPROLOL SUCCINATE 25 MG TAB.SR.24H PO ONE (12:15)
[2016-08-23 13:16] LABS: ANION GAP 9 (5-19); BLOOD UREA NITROGEN 24 mg/dL (7-20); CARBON DIOXIDE 22 mmol/L (22-30); CHLORIDE 105 mmol/L (98-107); CREATININE RESULT 0.63 mg/dL (0.52-1.25); GLUCOSE 278 mg/dL (75-110); MAGNESIUM 2.1 mg/dL (1.6-2.3); POTASSIUM 4.6 mmol/L (3.6-5.0); SODIUM 135.8 mmol/L (137-145)
--- NOTE | 2016-08-23 15:34 | PDOC PROGRESS REPORT ---
Subjective Progress Note for:: 08/23/16 Subjective:: Patient remains with shortness of breath on exertion but denies shortness of breath at rest. No chest pain. No diarrhea chills or fever. No nausea vomiting or sweating. Physical Exam Vital Signs: Temp Pulse Resp BP Pulse Ox 97.6 F 102 H 19 119/73 100 08/23/16 10:59 08/23/16 10:59 08/23/16 10:59 08/23/16 10:59 08/23/16 10:59 Intake & Output 08/22/16 08/23/16 08/24/16 06:59 06:59 06:59 Intake Total 1050 3851 598 Output Total 1910 2375 500 Balance -860 1476 98 Weight 119.2 kg 122 kg General appearance: PRESENT: no acute distress, cooperative, morbidly obese Head exam: PRESENT: normocephalic Eye exam: PRESENT: EOMI Mouth exam: PRESENT: moist, neck supple Neck exam: ABSENT: JVD Respiratory exam: PRESENT: rhonchi - few bilateral, unlabored. ABSENT: wheezes Cardiovascular exam: PRESENT: irregular rhythm. ABSENT: gallop GI/Abdominal exam: PRESENT: hypoactive bowel sounds, soft. ABSENT: distended, tenderness Extremities exam: PRESENT: other - Trace edema Neurological exam: PRESENT: alert, awake, oriented to situation Skin exam: PRESENT: dry, warm. ABSENT: cyanosis Results Laboratory Results: 08/22/16 05:45 08/23/16 12:38 08/23/16 12:38 Sodium 135.8 L Potassium 4.6 Chloride 105 Carbon Dioxide 22 Anion Gap 9 BUN 24 H Creatinine 0.63 Est GFR ( Amer) > 60 Est GFR (Non-Af Amer) > 60 Glucose 278 H Calcium 9.0 Magnesium 2.1 08/20/16 23:19 Sputum Gram Stain - Final 08/20/16 23:19 Sputum Sputum Culture - Final Mrsa (Meth Resis Staph Aureus) C.albicans/C.dubliniensis Normal Eun Absent 08/20/16 23:19 Catheterized Urine Urine Culture - Final NO GROWTH 2 DAYS 08/23/16 12:38 NT-Pro-B Natriuret Pep 408 Impressions: Chest X-Ray 08/20/16 14:33 IMPRESSION: NO ACUTE RADIOGRAPHIC FINDING IN THE CHEST. Chest/Abdomen CTA 08/20/16 16:44 IMPRESSION: 1. No evidence pulmonary embolus. 2. Left lower lobe pneumonia. 3. Mild mediastinal adenopathy likely reactive. 3 month follow-up chest CT is recommended. 4. Stable 3 cm right adrenal mass likely adenoma. Assessment & Plan - Diagnosis (1) Sepsis Qualifiers: Sepsis type: sepsis due to unspecified organism Qualified Code(s): A41.9 - Sepsis, unspecified organism Is this a current diagnosis for this admission?: Yes (2) Atrial fibrillation with rapid ventricular response Is this a current diagnosis for this admission?: Yes (3) Left lower lobe pneumonia Qualifiers: Pneumonia type: due to unspecified organism Qualified Code(s): J18.1 - Lobar pneumonia, unspecified organism Is this a current diagnosis for this admission?: Yes (4) Neutropenia Qualifiers: Neutropenia type: unspecified Qualified Code(s): D70.9 - Neutropenia, unspecified Is this a current diagnosis for this admission?: Yes (5) Thrombocytopenia Is this a current diagnosis for this admission?: Yes (6) Type 1 diabetes mellitus with hyperglycemia, with long-term current use of insulin Is this a current diagnosis for this admission?: Yes (7) Abnormal urinalysis Is this a current diagnosis for this admission?: Yes (8) Wegeners granulomatosis Is this a current diagnosis for this admission?: Yes (9) Hypertension Qualifiers: Hypertension type: essential hypertension Qualified Code(s): I10 - Essential (primary) hypertension Is this a current diagnosis for this admission?: Yes (10) Adrenal mass Is this a current diagnosis for this admission?: Yes - Time Time Spent with patient: 25-34 minutes - Plan Summary Plan Summary: Discontinue Primaxin and keep Levaquin. Continue vancomycin. Consult load planner for subacute rehabilitation. Continue Cardizem. Eliquis and metoprolol started. Continue supportive care.
[2016-08-23] MEDS: APIXABAN 5 MG TABLET PO SCH (17:49)
[2016-08-23] MEDS: INSULIN GLARGINE,HUM.REC.ANLOG 300 UNIT/3 ML INSULN.PEN SUBCUT SCH (17:50)
[2016-08-23] MEDS: VANCOMYCIN HCL 1,500 MG in DEXTROSE 5%-WATER 250 ML IV SCH (17:54)
[2016-08-23] MEDS ORDERED: APIXABAN 2.5 MG TABLET PO SCH (18:00)
--- NOTE | 2016-08-23 18:14 | PROGRESS NOTE E ---
Progress Note NAME: ANGELA PILLAI : 1965 AGE: 51Y DATE: 08/23/2016 ROOM: [facility] SUBJECTIVE: The patient is sitting up in chair without complaints. Both legs are wrapped in dressings for her venous stasis ulcers. OBJECTIVE: VITAL SIGNS: Noted blood pressure 117/69, temperature 98, pulse 99, respirations 16, saturation 98% on room air. EXTREMITIES: The patient's dressings were left intact, and I have instructed the nurses to call me at the time of the next dressing change. ASSESSMENT: CHRONIC VENOUS STASIS ULCERS OF BOTH LOWER EXTREMITIES. PLAN: I will inspect both lower extremities in the a.m. between dressing changes. DICTATING PHYSICIAN: JAKI MONTES M.D. [id number] PHY#: [id number] ID: [id number] JOB#: [id number] ACCT: [id number] cc:JAKI MONTES M.D. >
[2016-08-23] MEDS: METOPROLOL SUCCINATE 25 MG TAB.SR.24H PO SCH (21:34)
[2016-08-23] MEDS: LEVOFLOXACIN 750 MG TABLET PO SCH (21:34)
[2016-08-24] MEDS: INSULIN REG, HUMAN 100 UNIT/ML 3 ML VIAL (PYX) SUBCUT PRN ×5 (00:45→21:59)
[2016-08-24] MEDS: DILTIAZEM HCL 30 MG TABLET PO SCH ×4 (03:52→20:29)
[2016-08-24] MEDS: VANCOMYCIN HCL 1,500 MG in DEXTROSE 5%-WATER 250 ML IV SCH ×2 (05:26→17:43)
[2016-08-24] MEDS: LANSOPRAZOLE 30 MG TAB.RAP.DR PO SCH ×2 (05:27→16:49)
[2016-08-24] MEDS: LEVALBUTEROL HCL NEB 1.25 MG/3 ML AMPUL NEB PRN (05:42)
[2016-08-24 07:13] LABS: ANION GAP 9 (5-19); BLOOD UREA NITROGEN 19 mg/dL (7-20); CALCIUM 9.1 mg/dL (8.4-10.2); CARBON DIOXIDE 23 mmol/L (22-30); CHLORIDE 106 mmol/L (98-107); CREATININE RESULT 0.57 mg/dL (0.52-1.25); GLUCOSE 204 mg/dL (75-110); POTASSIUM 4.5 mmol/L (3.6-5.0)
[2016-08-24 07:16] LABS: HEMATOCRIT 38.7 % (36.0-47.0); HEMOGLOBIN 12.6 g/dL (12.0-15.5); HGB HCT DIFFERENCE -0.9; MEAN CORPUSCULAR HEMOGLOBIN 28.2 pg (27.0-33.4); MEAN CORPUSCULAR HGB CONC 32.6 g/dL (32.0-36.0); MEAN CORPUSCULAR VOLUME 86 fl (80-97); RED BLOOD COUNT 4.49 10^6/uL (3.72-5.28); RED CELL DISTRIBUTION WIDTH 14.4 % (11.5-14.0)
[2016-08-24 07:21] LABS: WHITE BLOOD COUNT 11.8 10^3/uL (4.0-10.5)
[2016-08-24] MEDS: FLUCONAZOLE 100 MG TABLET PO SCH (09:47)
[2016-08-24] MEDS: METOPROLOL SUCCINATE 25 MG TAB.SR.24H PO SCH ×2 (09:48→22:00)
[2016-08-24] MEDS: PREDNISONE 10 MG TABLET PO SCH ×3 (09:48→17:42)
[2016-08-24] MEDS: APIXABAN 5 MG TABLET PO SCH ×2 (09:49→17:43)
[2016-08-24] MEDS: FLUTICASONE NASAL SPRAY 50 MCG/SPRY 120 SPRAY/16 GM NASL SCH ×2 (09:50→22:00)
--- NOTE | 2016-08-24 11:00 | PDOC PROGRESS REPORT ---
Subjective Progress Note for:: 08/24/16 Subjective:: Getting a little bit better and slowly improving. Denies any diarrhea. No chills or fever. No chest pain. No abdominal pain nausea or vomiting. No PND or orthopnea. Physical Exam Vital Signs: Temp Pulse Resp BP Pulse Ox 98.2 F 79 18 121/67 98 08/24/16 07:38 08/24/16 08:00 08/24/16 08:00 08/24/16 07:38 08/24/16 08:00 Intake & Output 08/23/16 08/24/16 08/25/16 06:59 06:59 06:59 Intake Total 3851 2553 Output Total 0369 4870 Balance 1476 -797 Weight 122 kg 123 kg General appearance: PRESENT: no acute distress, cooperative, obese Head exam: PRESENT: normocephalic Eye exam: PRESENT: EOMI Mouth exam: PRESENT: moist, neck supple Neck exam: ABSENT: JVD Respiratory exam: PRESENT: clear to auscultation jr - Anteriorly, rhonchi - Minimal posteriorly. ABSENT: wheezes Cardiovascular exam: PRESENT: irregular rhythm. ABSENT: gallop GI/Abdominal exam: PRESENT: hypoactive bowel sounds, soft. ABSENT: tenderness Extremities exam: PRESENT: other - Trace lower extremity edema Neurological exam: PRESENT: alert, awake, oriented to situation Skin exam: PRESENT: dry, warm. ABSENT: cyanosis Results Laboratory Results: 08/24/16 05:38 08/24/16 05:38 08/23/16 08/24/16 08/24/16 12:38 05:38 05:38 WBC 11.8 H D RBC 4.49 Hgb 12.6 Hct 38.7 MCV 86 MCH 28.2 MCHC 32.6 RDW 14.4 H Plt Count 161 Sodium 135.8 L 138.0 Potassium 4.6 4.5 Chloride 105 106 Carbon Dioxide 22 23 Anion Gap 9 9 BUN 24 H 19 Creatinine 0.63 0.57 Est GFR ( Amer) > 60 > 60 Est GFR (Non-Af Amer) > 60 > 60 Glucose 278 H 204 H Calcium 9.0 9.1 Magnesium 2.1 08/20/16 23:19 Sputum Gram Stain - Final 08/20/16 23:19 Sputum Sputum Culture - Final Mrsa (Meth Resis Staph Aureus) C.albicans/C.dubliniensis Normal Eun Absent 08/20/16 23:19 Catheterized Urine Urine Culture - Final NO GROWTH 2 DAYS 08/23/16 12:38 NT-Pro-B Natriuret Pep 408 Impressions: Chest X-Ray 08/20/16 14:33 IMPRESSION: NO ACUTE RADIOGRAPHIC FINDING IN THE CHEST. Chest/Abdomen CTA 08/20/16 16:44 IMPRESSION: 1. No evidence pulmonary embolus. 2. Left lower lobe pneumonia. 3. Mild mediastinal adenopathy likely reactive. 3 month follow-up chest CT is recommended. 4. Stable 3 cm right adrenal mass likely adenoma. Assessment & Plan - Diagnosis (1) Sepsis Qualifiers: Sepsis type: sepsis due to unspecified organism Qualified Code(s): A41.9 - Sepsis, unspecified organism Is this a current diagnosis for this admission?: Yes (2) Atrial fibrillation with rapid ventricular response Is this a current diagnosis for this admission?: Yes (3) Left lower lobe pneumonia Qualifiers: Pneumonia type: due to unspecified organism Qualified Code(s): J18.1 - Lobar pneumonia, unspecified organism Is this a current diagnosis for this admission?: Yes (4) Neutropenia Qualifiers: Neutropenia type: unspecified Qualified Code(s): D70.9 - Neutropenia, unspecified Is this a current diagnosis for this admission?: Yes (5) Thrombocytopenia Is this a current diagnosis for this admission?: Yes (6) Type 1 diabetes mellitus with hyperglycemia, with long-term current use of insulin Is this a current diagnosis for this admission?: Yes (7) Abnormal urinalysis Is this a current diagnosis for this admission?: Yes (8) Wegeners granulomatosis Is this a current diagnosis for this admission?: Yes (9) Hypertension Qualifiers: Hypertension type: essential hypertension Qualified Code(s): I10 - Essential (primary) hypertension Is this a current diagnosis for this admission?: Yes (10) Adrenal mass Is this a current diagnosis for this admission?: Yes - Time Time Spent with patient: 15-24 minutes - Plan Summary Plan Summary: We will continue vancomycin. Heart rate is improving. We will continue beta jory and calcium channel jory for rate control. Consult data recovery planner for subacute rehabilitation. Neutropenia resolved. Continue supportive care.
--- NOTE | 2016-08-24 11:17 | PDOC PROGRESS REPORT ---
Subjective Progress Note for:: 08/24/16 Subjective:: Patient seems to be doing better with gradual but steady improvement. Pt is denying any chest arm or neck discomfort. Patient denying any PND, orthopnea. Patient denied any sustained palpitations, dizziness, syncope, near syncope. Patient denying any fever chills. Patient denying any other significant discomfort. Patient is in persistent atrial fibrillation. Patient complaining of shortness of breath on minimal exertion and some increased in heart rate, however this seems better. Review of systems: Rest review of systems negative. Medications: Medications have been reviewed. Physical Exam Vital Signs: Temp Pulse Resp BP Pulse Ox 98.2 F 79 18 121/67 98 08/24/16 07:38 08/24/16 08:00 08/24/16 08:00 08/24/16 07:38 08/24/16 08:00 Intake & Output 08/23/16 08/24/16 08/25/16 06:59 06:59 06:59 Intake Total 3851 2553 Output Total 2375 3350 Balance 1476 -797 Weight 122 kg 123 kg Exam: GENERAL: well-nourished and in no acute distress. Alert and oriented x3 HEAD: Atraumatic, normocephalic. EYES: Pupils equal round and reactive to light, extraocular movements intact, sclera anicteric, conjunctiva are normal. ENT: TMs normal, nares patent, oropharynx clear without exudates. Moist mucous membranes. No oral ulcerations or bleeding gums noted NECK: supple without lymphadenopathy. Trachea is central. No cervical or axillary lymphadenopathy noted. Carotids are 2+, JVD WNL LUNGS: Respiration seems nonlabored, no significant accessory muscle action noted. Few left basal crackles noted. No wheezes rales or rhonchi. No significant dullness noted on percussion. CHEST: Palpation of the chest wall shows no significant chest wall tenderness or abnormalities. 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 ABDOMEN: Soft, no significant tenderness appreciated, normoactive bowel sounds. No guarding, no rebound. No rigidity noted . No masses appreciated. EXTREMITIES: Pedal pulses are 1-2+, no calf tenderness noted. No clubbing or cyanosis.1-2 + pedal edema noted, both lower extremity in wraps. NEUROLOGICAL: Focused neurological exam showed no significant neurologic deficit. Normal speech, no focal weakness appreciated. PSYCH: Normal mood, normal affect. Judgment and insight within normal limits. SKIN: No significant ecchymosis, rash, ulcerations or signs of pruritus noted. MUSCULOSKELETAL EXAM: No significant joint swelling noted. Results Laboratory Results: 08/24/16 05:38 08/24/16 05:38 08/23/16 08/24/16 08/24/16 12:38 05:38 05:38 WBC 11.8 H D RBC 4.49 Hgb 12.6 Hct 38.7 MCV 86 MCH 28.2 MCHC 32.6 RDW 14.4 H Plt Count 161 Sodium 135.8 L 138.0 Potassium 4.6 4.5 Chloride 105 106 Carbon Dioxide 22 23 Anion Gap 9 9 BUN 24 H 19 Creatinine 0.63 0.57 Est GFR ( Amer) > 60 > 60 Est GFR (Non-Af Amer) > 60 > 60 Glucose 278 H 204 H Calcium 9.0 9.1 Magnesium 2.1 08/20/16 23:19 Sputum Gram Stain - Final 08/20/16 23:19 Sputum Sputum Culture - Final Mrsa (Meth Resis Staph Aureus) C.albicans/C.dubliniensis Normal Eun Absent 08/20/16 23:19 Catheterized Urine Urine Culture - Final NO GROWTH 2 DAYS 08/23/16 12:38 NT-Pro-B Natriuret Pep 408 Impressions: Chest X-Ray 08/20/16 14:33 IMPRESSION: NO ACUTE RADIOGRAPHIC FINDING IN THE CHEST. Chest/Abdomen CTA 08/20/16 16:44 IMPRESSION: 1. No evidence pulmonary embolus. 2. Left lower lobe pneumonia. 3. Mild mediastinal adenopathy likely reactive. 3 month follow-up chest CT is recommended. 4. Stable 3 cm right adrenal mass likely adenoma. Assessment & Plan - Diagnosis (1) Hypertension Qualifiers: Hypertension type: essential hypertension Qualified Code(s): I10 - Essential (primary) hypertension Is this a current diagnosis for this admission?: Yes (2) Left lower lobe pneumonia Qualifiers: Pneumonia type: due to unspecified organism Qualified Code(s): J18.1 - Lobar pneumonia, unspecified organism Is this a current diagnosis for this admission?: Yes (3) Neutropenia Qualifiers: Neutropenia type: unspecified Qualified Code(s): D70.9 - Neutropenia, unspecified Is this a current diagnosis for this admission?: Yes (4) Sepsis Qualifiers: Sepsis type: sepsis due to unspecified organism Qualified Code(s): A41.9 - Sepsis, unspecified organism Is this a current diagnosis for this admission?: Yes (5) Atrial fibrillation with rapid ventricular response Is this a current diagnosis for this admission?: Yes (6) Wegeners granulomatosis Is this a current diagnosis for this admission?: Yes (7) Obesity Qualifiers: Obesity severity: unspecified obesity severity Is this a current diagnosis for this admission?: Yes (8) Debility, unspecified Is this a current diagnosis for this admission?: Yes - Notes Notes: Patient has shown gradual but steady improvement. Left lower lobe pneumonia is improving. Neutropenia: Is resolved. Sepsis: This has improved. Atrial fibrillation with rapid ventricular response: Patient started on chronic anticoagulation, rate seems to be coming under better control. Joana's granulomatosis: Patient being monitored by acetylene torch operator oncologist. Obesity: Patient has been advised in weight loss. General debility: Patient advised in increasing activities. - Time Time with patient: 15-25 minutes
[2016-08-24] MEDS ORDERED: FUROSEMIDE 40 MG TABLET PO ONE (12:00)
[2016-08-24] MEDS: INSULIN GLARGINE,HUM.REC.ANLOG 300 UNIT/3 ML INSULN.PEN SUBCUT SCH (17:42)
[2016-08-24] MEDS: LEVOFLOXACIN 750 MG TABLET PO SCH (22:00)
[2016-08-25] MEDS: DILTIAZEM HCL 30 MG TABLET PO SCH ×4 (02:54→20:33)
[2016-08-25] MEDS: LANSOPRAZOLE 30 MG TAB.RAP.DR PO SCH ×2 (05:23→17:19)
[2016-08-25] MEDS: VANCOMYCIN HCL 1,500 MG in DEXTROSE 5%-WATER 250 ML IV SCH ×2 (06:23→17:21)
[2016-08-25] MEDS: INSULIN REG, HUMAN 100 UNIT/ML 3 ML VIAL (PYX) SUBCUT PRN ×4 (07:47→21:39)
[2016-08-25] MEDS: FUROSEMIDE 20 MG TABLET PO SCH (10:07)
[2016-08-25] MEDS: METOPROLOL SUCCINATE 25 MG TAB.SR.24H PO SCH ×2 (10:07→21:39)
[2016-08-25] MEDS: PREDNISONE 10 MG TABLET PO SCH ×3 (10:08→17:19)
[2016-08-25] MEDS: FLUCONAZOLE 100 MG TABLET PO SCH (10:08)
[2016-08-25] MEDS: APIXABAN 5 MG TABLET PO SCH ×2 (10:09→17:19)
[2016-08-25] MEDS: FLUTICASONE NASAL SPRAY 50 MCG/SPRY 120 SPRAY/16 GM NASL SCH ×2 (10:09→21:39)
--- NOTE | 2016-08-25 10:49 | PDOC PROGRESS REPORT ---
Subjective Progress Note for:: 08/25/16 Subjective:: Getting a little bit better and slowly improving but still tachycardic. Denies any diarrhea or nausea nor vomiting. No chills or fever. No chest pain or worsening shortness of breath. No abdominal pain. No PND or orthopnea. During physical therapy reportedly the patient's heart rate went up to 144 Physical Exam Vital Signs: Temp Pulse Resp BP Pulse Ox 97.9 F 101 H 18 152/77 H 101 H 08/25/16 05:12 08/25/16 08:03 08/25/16 08:03 08/25/16 05:12 08/25/16 08:03 Intake & Output 08/24/16 08/25/16 08/26/16 06:59 06:59 06:59 Intake Total 2553 1549 Output Total 3350 5000 Balance -797 -3451 Weight 123 kg 115.439 kg General appearance: PRESENT: no acute distress, cooperative, morbidly obese Head exam: PRESENT: normocephalic Eye exam: PRESENT: EOMI Mouth exam: PRESENT: moist, neck supple Neck exam: ABSENT: JVD Respiratory exam: PRESENT: unlabored. ABSENT: rhonchi, wheezes Cardiovascular exam: PRESENT: irregular rhythm. ABSENT: gallop GI/Abdominal exam: PRESENT: normal bowel sounds, soft. ABSENT: distended, tenderness Extremities exam: PRESENT: +1 edema Neurological exam: PRESENT: alert, awake, oriented to situation Skin exam: PRESENT: dry, warm. ABSENT: cyanosis Results Laboratory Results: 08/24/16 05:38 08/24/16 05:38 08/23/16 12:38 NT-Pro-B Natriuret Pep 408 Impressions: Chest X-Ray 08/20/16 14:33 IMPRESSION: NO ACUTE RADIOGRAPHIC FINDING IN THE CHEST. Chest/Abdomen CTA 08/20/16 16:44 IMPRESSION: 1. No evidence pulmonary embolus. 2. Left lower lobe pneumonia. 3. Mild mediastinal adenopathy likely reactive. 3 month follow-up chest CT is recommended. 4. Stable 3 cm right adrenal mass likely adenoma. Assessment & Plan - Diagnosis (1) Sepsis Qualifiers: Sepsis type: sepsis due to unspecified organism Qualified Code(s): A41.9 - Sepsis, unspecified organism Is this a current diagnosis for this admission?: Yes (2) Atrial fibrillation with rapid ventricular response Is this a current diagnosis for this admission?: Yes (3) Left lower lobe pneumonia Qualifiers: Pneumonia type: due to unspecified organism Qualified Code(s): J18.1 - Lobar pneumonia, unspecified organism Is this a current diagnosis for this admission?: Yes (4) Neutropenia Qualifiers: Neutropenia type: unspecified Qualified Code(s): D70.9 - Neutropenia, unspecified Is this a current diagnosis for this admission?: Yes (5) Thrombocytopenia Is this a current diagnosis for this admission?: Yes (6) Type 1 diabetes mellitus with hyperglycemia, with long-term current use of insulin Is this a current diagnosis for this admission?: Yes (7) Abnormal urinalysis Is this a current diagnosis for this admission?: Yes (8) Wegeners granulomatosis Is this a current diagnosis for this admission?: Yes (9) Hypertension Qualifiers: Hypertension type: essential hypertension Qualified Code(s): I10 - Essential (primary) hypertension Is this a current diagnosis for this admission?: Yes (10) Adrenal mass Is this a current diagnosis for this admission?: Yes - Time Time Spent with patient: 15-24 minutes - Plan Summary Plan Summary: Continue current antibiotic at this time. Increase Cardizem and metoprolol. Continue physical therapy. Awaiting subacute rehabilitation.
--- NOTE | 2016-08-25 14:55 | PDOC PROGRESS REPORT ---
Subjective Progress Note for:: 08/25/16 Subjective:: Patient seems to be doing better with gradual but steady improvement. Pt is denying any chest arm or neck discomfort. Patient denying any PND, orthopnea. Patient denied any sustained palpitations, dizziness, syncope, near syncope. Patient denying any fever chills. Patient denying any other significant discomfort. Patient is in persistent atrial fibrillation. Patient complaining of shortness of breath on minimal exertion but again this is better and some increased in heart rate, however this seems better. Patient seems to be tolerating beta jory. She was placed on diuretics. Review of systems: Rest review of systems negative. Medications: Medications have been reviewed. Physical Exam Vital Signs: Temp Pulse Resp BP Pulse Ox 97.9 F 90 22 H 124/89 H 94 08/25/16 11:40 08/25/16 14:00 08/25/16 11:40 08/25/16 11:40 08/25/16 11:40 Intake & Output 08/24/16 08/25/16 08/26/16 06:59 06:59 06:59 Intake Total 2553 1549 696 Output Total 3350 5000 1300 Balance -797 -3451 -604 Weight 123 kg 115.439 kg Exam: GENERAL: well-nourished and in no acute distress. Alert and oriented x3 HEAD: Atraumatic, normocephalic. EYES: Pupils equal round and reactive to light, extraocular movements intact, sclera anicteric, conjunctiva are normal. ENT: TMs normal, nares patent, oropharynx clear without exudates. Moist mucous membranes. No oral ulcerations or bleeding gums noted NECK: supple without lymphadenopathy. Trachea is central. No cervical or axillary lymphadenopathy noted. Carotids are 2+, JVD WNL LUNGS: Respiration seems nonlabored, no significant accessory muscle action noted. Breath sounds clear to auscultation bilaterally and equal. No wheezes rales or rhonchi. No significant dullness noted on percussion. CHEST: Palpation of the chest wall shows no significant chest wall tenderness or abnormalities. 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 ABDOMEN: Soft, no significant tenderness appreciated, normoactive bowel sounds. No guarding, no rebound. No rigidity noted . No masses appreciated. EXTREMITIES: Pedal pulses are 1-2+, no calf tenderness noted. No clubbing or cyanosis.1-2 + pedal edema noted, both lower legs in wraps NEUROLOGICAL: Focused neurological exam showed no significant neurologic deficit. Normal speech, no focal weakness appreciated. PSYCH: Normal mood, normal affect. Judgment and insight within normal limits. SKIN: No significant ecchymosis, rash, ulcerations or signs of pruritus noted. MUSCULOSKELETAL EXAM: No significant joint swelling noted. Results Laboratory Results: 08/24/16 05:38 08/24/16 05:38 08/23/16 12:38 NT-Pro-B Natriuret Pep 408 Impressions: Chest X-Ray 08/20/16 14:33 IMPRESSION: NO ACUTE RADIOGRAPHIC FINDING IN THE CHEST. Chest/Abdomen CTA 08/20/16 16:44 IMPRESSION: 1. No evidence pulmonary embolus. 2. Left lower lobe pneumonia. 3. Mild mediastinal adenopathy likely reactive. 3 month follow-up chest CT is recommended. 4. Stable 3 cm right adrenal mass likely adenoma. Assessment & Plan - Diagnosis (1) Hypertension Qualifiers: Hypertension type: essential hypertension Qualified Code(s): I10 - Essential (primary) hypertension Is this a current diagnosis for this admission?: Yes (2) Left lower lobe pneumonia Qualifiers: Pneumonia type: due to unspecified organism Qualified Code(s): J18.1 - Lobar pneumonia, unspecified organism Is this a current diagnosis for this admission?: Yes (3) Neutropenia Qualifiers: Neutropenia type: unspecified Qualified Code(s): D70.9 - Neutropenia, unspecified Is this a current diagnosis for this admission?: Yes (4) Sepsis Qualifiers: Sepsis type: sepsis due to unspecified organism Qualified Code(s): A41.9 - Sepsis, unspecified organism Is this a current diagnosis for this admission?: Yes (5) Atrial fibrillation with rapid ventricular response Is this a current diagnosis for this admission?: Yes (6) Wegeners granulomatosis Is this a current diagnosis for this admission?: Yes (7) Obesity Qualifiers: Obesity severity: unspecified obesity severity Is this a current diagnosis for this admission?: Yes (8) Debility, unspecified Is this a current diagnosis for this admission?: Yes (9) Edema Qualifiers: Edema type: unspecified Qualified Code(s): R60.9 - Edema, unspecified Is this a current diagnosis for this admission?: YesPlan: Lower extremity bilateral most likely related to venous insufficiency, dependence etc. Patient does have some superficial venous ulceration. Patient encouraged to keep her legs elevated. Patient also encouraged to continue to wrap her legs. - Notes Notes: Patient has shown gradual improvement. Left lower lobe pneumonia is improving. Neutropenia: Is resolved. Sepsis: This has resolved. Atrial fibrillation with rapid ventricular response: Patient started on chronic anticoagulation, rate seems to be coming under better control. Patient on Cardizem and small dose of beta jory. Joana's granulomatosis: Patient being monitored by mold filler plastic dolls oncologist. Obesity: Patient has been advised in weight loss. Pedal edema with venous ulceration: Patient being monitored by surgeon. Patient started on small dose of diuretics. General debility: Patient advised in increasing activities. - Time Time with patient: 15-25 minutes - CODE STATUS was discussed, patient remains full code. Surrogate decision-maker unchanged. Multiple medical problems were addressed.More than 50% of the time spent coordinating care, discussing management plans with involved caregivers. Management plans discussed with involved personnels. Medical decision making was of moderate complexity.
[2016-08-25] MEDS: INSULIN GLARGINE,HUM.REC.ANLOG 300 UNIT/3 ML INSULN.PEN SUBCUT SCH (17:18)
[2016-08-25] MEDS: LEVOFLOXACIN 750 MG TABLET PO SCH (21:40)
[2016-08-26] MEDS: DILTIAZEM HCL 30 MG TABLET PO SCH ×3 (03:32→15:51)
[2016-08-26] MEDS: LANSOPRAZOLE 30 MG TAB.RAP.DR PO SCH ×2 (05:10→17:31)
[2016-08-26] MEDS: VANCOMYCIN HCL 1,500 MG in DEXTROSE 5%-WATER 250 ML IV SCH ×2 (05:11→17:31)
[2016-08-26] MEDS: INSULIN REG, HUMAN 100 UNIT/ML 3 ML VIAL (PYX) SUBCUT PRN ×4 (07:31→22:14)
[2016-08-26] MEDS: METOPROLOL SUCCINATE 25 MG TAB.SR.24H PO SCH ×2 (09:39→22:14)
[2016-08-26] MEDS: FUROSEMIDE 20 MG TABLET PO SCH (09:39)
[2016-08-26] MEDS: FLUTICASONE NASAL SPRAY 50 MCG/SPRY 120 SPRAY/16 GM NASL SCH ×2 (09:39→22:15)
[2016-08-26] MEDS: FLUCONAZOLE 100 MG TABLET PO SCH (09:41)
[2016-08-26] MEDS: PREDNISONE 10 MG TABLET PO SCH ×3 (09:41→17:31)
[2016-08-26] MEDS: APIXABAN 5 MG TABLET PO SCH ×2 (09:42→17:31)
--- NOTE | 2016-08-26 10:04 | PDOC PROGRESS REPORT ---
Subjective Progress Note for:: 08/26/16 Subjective:: Getting a little bit better and able to ambulate with better tolerance. She still becomes tachycardic and a little bit lightheaded . Denies any diarrhea or nausea nor vomiting. No chills or fever. No chest pain or worsening shortness of breath. No abdominal pain. No PND or orthopnea. Physical Exam Vital Signs: Temp Pulse Resp BP Pulse Ox 97.6 F 100 20 134/68 H 95 08/26/16 07:41 08/26/16 07:41 08/26/16 07:41 08/26/16 07:41 08/26/16 07:41 Intake & Output 08/25/16 08/26/16 08/27/16 06:59 06:59 06:59 Intake Total 1549 3429 Output Total 5000 6400 Balance -4141 -5730 Weight 115.439 kg 117.2 kg General appearance: PRESENT: no acute distress, cooperative, morbidly obese Head exam: PRESENT: normocephalic Eye exam: PRESENT: EOMI Mouth exam: PRESENT: moist, neck supple Neck exam: ABSENT: JVD Respiratory exam: PRESENT: clear to auscultation jr, decreased breath sounds - Bilateral. ABSENT: rhonchi, wheezes Cardiovascular exam: PRESENT: irregular rhythm GI/Abdominal exam: PRESENT: normal bowel sounds, soft. ABSENT: distended, tenderness Extremities exam: PRESENT: other - Trace lower extremity edema Neurological exam: PRESENT: alert, awake, oriented to situation Skin exam: PRESENT: dry, warm. ABSENT: cyanosis Results Laboratory Results: 08/24/16 05:38 08/24/16 05:38 08/20/16 22:10 Blood Blood Culture - Final NO GROWTH IN 5 DAYS 08/20/16 20:00 Blood Blood Culture - Final NO GROWTH IN 5 DAYS 08/23/16 12:38 NT-Pro-B Natriuret Pep 408 Impressions: Chest X-Ray 08/20/16 14:33 IMPRESSION: NO ACUTE RADIOGRAPHIC FINDING IN THE CHEST. Chest/Abdomen CTA 08/20/16 16:44 IMPRESSION: 1. No evidence pulmonary embolus. 2. Left lower lobe pneumonia. 3. Mild mediastinal adenopathy likely reactive. 3 month follow-up chest CT is recommended. 4. Stable 3 cm right adrenal mass likely adenoma. Assessment & Plan - Diagnosis (1) Sepsis Qualifiers: Sepsis type: sepsis due to unspecified organism Qualified Code(s): A41.9 - Sepsis, unspecified organism Is this a current diagnosis for this admission?: Yes (2) Atrial fibrillation with rapid ventricular response Is this a current diagnosis for this admission?: Yes (3) Left lower lobe pneumonia Qualifiers: Pneumonia type: due to unspecified organism Qualified Code(s): J18.1 - Lobar pneumonia, unspecified organism Is this a current diagnosis for this admission?: Yes (4) Neutropenia Qualifiers: Neutropenia type: unspecified Qualified Code(s): D70.9 - Neutropenia, unspecified Is this a current diagnosis for this admission?: Yes (5) Thrombocytopenia Is this a current diagnosis for this admission?: Yes (6) Type 1 diabetes mellitus with hyperglycemia, with long-term current use of insulin Is this a current diagnosis for this admission?: Yes (7) Abnormal urinalysis Is this a current diagnosis for this admission?: Yes (8) Wegeners granulomatosis Is this a current diagnosis for this admission?: Yes (9) Hypertension Qualifiers: Hypertension type: essential hypertension Qualified Code(s): I10 - Essential (primary) hypertension Is this a current diagnosis for this admission?: Yes (10) Adrenal mass Is this a current diagnosis for this admission?: Yes - Time Time Spent with patient: 25-34 minutes - Plan Summary Plan Summary: We will get the vancomycin while the patient is on the hospital. Continue steroids and bronchodilators. Continue physical therapy. Patient states that she has significant shortness of breath still on exertion and having concerns about going home as she lives alone and will not be able to do much activity. Arrangement for subacute rehabilitation made and awaiting bed. She was given 2 weeks for rest on the above absence for work and needs follow-up with cardiology subsequently from then if she needed further more time. Discussed with Dr. Rod. Blood sugar is still elevated we will increase basal insulin. Continue supportive care.
[2016-08-26] MEDS: ACETAMINOPHEN 325 MG TABLET PO PRN (12:08)
[2016-08-26] MEDS: INSULIN GLARGINE,HUM.REC.ANLOG 300 UNIT/3 ML INSULN.PEN SUBCUT SCH (17:30)
--- NOTE | 2016-08-26 20:11 | PDOC PROGRESS REPORT ---
Subjective Progress Note for:: 08/26/16 Subjective:: Patient seems to be doing better with gradual but steady improvement. Pt is denying any chest arm or neck discomfort. Patient denying any PND, orthopnea. Patient denied any sustained palpitations, dizziness, syncope, near syncope. Patient denying any fever chills. Patient denying any other significant discomfort. Patient is in persistent atrial fibrillation. Patient complaining of shortness of breath on minimal exertion but again this is better and some increased in heart rate, however this seems better. Patient seems to be tolerating beta jory. Patient was placed on increased dose of calcium channel jory Cardizem. She is continuing on a small dose of diuretics. Heart rate seems to be under better control. Review of systems: Rest review of systems negative. Medications: Medications have been reviewed. Physical Exam Vital Signs: Temp Pulse Resp BP Pulse Ox 98.2 F 100 20 126/63 H 98 08/26/16 15:28 08/26/16 19:00 08/26/16 15:28 08/26/16 15:28 08/26/16 18:08 Intake & Output 08/25/16 08/26/16 08/27/16 06:59 06:59 06:59 Intake Total 1549 3429 1288 Output Total 5000 6400 1700 Balance -5490 -0333 -918 Weight 115.439 kg 117.2 kg Exam: GENERAL: well-nourished and in no acute distress. Alert and oriented x3 HEAD: Atraumatic, normocephalic. EYES: Pupils equal round and reactive to light, extraocular movements intact, sclera anicteric, conjunctiva are normal. ENT: TMs normal, nares patent, oropharynx clear without exudates. Moist mucous membranes. No oral ulcerations or bleeding gums noted NECK: supple without lymphadenopathy. Trachea is central. No cervical or axillary lymphadenopathy noted. Carotids are 2+, JVD WNL LUNGS: Respiration seems nonlabored, no significant accessory muscle action noted. Left basal crackles are noted. No wheezes rales or rhonchi. No significant dullness noted on percussion. CHEST: Palpation of the chest wall shows no significant chest wall tenderness or abnormalities. 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 ABDOMEN: Soft, no significant tenderness appreciated, normoactive bowel sounds. No guarding, no rebound. No rigidity noted . No masses appreciated. EXTREMITIES: Pedal pulses are 1-2+, no calf tenderness noted. No clubbing or cyanosis.1+ pedal edema noted. Lower legs are in wraps. NEUROLOGICAL: Focused neurological exam showed no significant neurologic deficit. Normal speech, no focal weakness appreciated. PSYCH: Normal mood, normal affect. Judgment and insight within normal limits. SKIN: No significant ecchymosis, rash, ulcerations or signs of pruritus noted. MUSCULOSKELETAL EXAM: No significant joint swelling noted. Results Laboratory Results: 08/24/16 05:38 08/24/16 05:38 08/20/16 22:10 Blood Blood Culture - Final NO GROWTH IN 5 DAYS 08/20/16 20:00 Blood Blood Culture - Final NO GROWTH IN 5 DAYS 08/23/16 12:38 NT-Pro-B Natriuret Pep 408 Impressions: Chest X-Ray 08/20/16 14:33 IMPRESSION: NO ACUTE RADIOGRAPHIC FINDING IN THE CHEST. Chest/Abdomen CTA 08/20/16 16:44 IMPRESSION: 1. No evidence pulmonary embolus. 2. Left lower lobe pneumonia. 3. Mild mediastinal adenopathy likely reactive. 3 month follow-up chest CT is recommended. 4. Stable 3 cm right adrenal mass likely adenoma. Assessment & Plan - Diagnosis (1) Hypertension Qualifiers: Hypertension type: essential hypertension Qualified Code(s): I10 - Essential (primary) hypertension Is this a current diagnosis for this admission?: Yes (2) Left lower lobe pneumonia Qualifiers: Pneumonia type: due to unspecified organism Qualified Code(s): J18.1 - Lobar pneumonia, unspecified organism Is this a current diagnosis for this admission?: Yes (3) Neutropenia Qualifiers: Neutropenia type: unspecified Qualified Code(s): D70.9 - Neutropenia, unspecified Is this a current diagnosis for this admission?: Yes (4) Sepsis Qualifiers: Sepsis type: sepsis due to unspecified organism Qualified Code(s): A41.9 - Sepsis, unspecified organism Is this a current diagnosis for this admission?: Yes (5) Atrial fibrillation with rapid ventricular response Is this a current diagnosis for this admission?: Yes (6) Wegeners granulomatosis Is this a current diagnosis for this admission?: Yes (7) Obesity Qualifiers: Obesity severity: unspecified obesity severity Is this a current diagnosis for this admission?: Yes (8) Debility, unspecified Is this a current diagnosis for this admission?: Yes (9) Edema Qualifiers: Edema type: unspecified Qualified Code(s): R60.9 - Edema, unspecified Is this a current diagnosis for this admission?: Yes - Notes Notes: Patient has shown gradual improvement. Left lower lobe pneumonia is improving. Neutropenia: Is resolved. Sepsis: This has resolved. Atrial fibrillation with rapid ventricular response: Patient started on chronic anticoagulation, rate seems to be coming under better control. Patient on Cardizem and small dose of beta jory. Cardizem dose was increased to 60 mg every 6. Consider switching to by mouth Cardizem CD 120 mg by mouth twice a day. Patient should continue with chronic anticoagulation. We will recommend cardioversion/ablation after 3-4 weeks of adequate anticoagulation. Joana's granulomatosis: Patient being monitored by computer system validation specialist oncologist. Obesity: Patient has been advised in weight loss. Pedal edema with venous ulceration: Patient being monitored by surgeon. Patient started on small dose of diuretics. General debility: Patient advised in increasing activities. Considerable time spent discussing management plans for atrial fibrillation and adjusting medication, increasing activity, weight loss advise etc. Patient can follow-up with me after discharge or from the rehabilitation facility. Will sign off - Time Time with patient: Greater than 35 minutes - CODE STATUS was discussed, patient remains full code. Surrogate decision-maker unchanged. Multiple medical problems were addressed., More than 50% of the time spent coordinating care, discussing management plans with involved caregivers. Management plans discussed with involved personnels. Medical decision making was of moderate complexity. Will sign off. Medications reviewed and adjusted accordingly: Yes
[2016-08-26] MEDS: DILTIAZEM HCL 120 MG CAP.SR.24H PO SCH (22:14)
[2016-08-26] MEDS: LEVOFLOXACIN 750 MG TABLET PO SCH (22:14)
[2016-08-27] MEDS: LANSOPRAZOLE 30 MG TAB.RAP.DR PO SCH ×2 (05:06→16:02)
[2016-08-27] MEDS: VANCOMYCIN HCL 1,500 MG in DEXTROSE 5%-WATER 250 ML IV SCH ×2 (05:06→18:17)
[2016-08-27] MEDS: INSULIN REG, HUMAN 100 UNIT/ML 3 ML VIAL (PYX) SUBCUT PRN ×4 (07:42→23:39)
[2016-08-27] MEDS: FLUTICASONE NASAL SPRAY 50 MCG/SPRY 120 SPRAY/16 GM NASL SCH ×2 (09:20→22:23)
[2016-08-27] MEDS: APIXABAN 5 MG TABLET PO SCH ×2 (09:22→17:20)
[2016-08-27] MEDS: DILTIAZEM HCL 120 MG CAP.SR.24H PO SCH ×2 (09:22→22:22)
[2016-08-27] MEDS: FLUCONAZOLE 100 MG TABLET PO SCH (09:22)
[2016-08-27] MEDS: METOPROLOL SUCCINATE 25 MG TAB.SR.24H PO SCH ×2 (09:23→22:23)
[2016-08-27] MEDS: PREDNISONE 10 MG TABLET PO SCH ×3 (09:23→17:20)
[2016-08-27] MEDS: FUROSEMIDE 20 MG TABLET PO SCH (09:23)
--- NOTE | 2016-08-27 11:16 | PDOC PROGRESS REPORT ---
Subjective Progress Note for:: 08/27/16 Subjective:: The patient reports that her breathing is doing better. Physical Exam Vital Signs: Temp Pulse Resp BP Pulse Ox 99.2 F 94 19 142/72 H 96 08/27/16 07:57 08/27/16 07:58 08/27/16 07:57 08/27/16 07:57 08/27/16 07:57 Intake & Output 08/26/16 08/27/16 08/28/16 06:59 06:59 06:59 Intake Total 3429 0463 Output Total 6407 1770 Balance -2971 -9467 Weight 117.2 kg 115.2 kg General appearance: PRESENT: no acute distress, obese Eye exam: PRESENT: conjunctiva pink Mouth exam: PRESENT: moist, tongue midline Neck exam: ABSENT: carotid bruit, JVD, lymphadenopathy, thyromegaly Respiratory exam: PRESENT: rhonchi - Coarse rhonchi bilaterally. Cardiovascular exam: PRESENT: irregular rhythm. ABSENT: diastolic murmur, rubs , systolic murmur GI/Abdominal exam: PRESENT: normal bowel sounds, soft. ABSENT: distended, guarding, mass, organolmegaly, rebound, tenderness Extremities exam: PRESENT: full ROM, pedal edema - Trace pedal edema.. ABSENT: calf tenderness, clubbing Neurological exam: PRESENT: alert, awake, oriented to person, oriented to place , oriented to time, oriented to situation Psychiatric exam: PRESENT: appropriate affect Skin exam: PRESENT: dry, intact, warm. ABSENT: cyanosis, rash Results Laboratory Results: 08/24/16 05:38 08/24/16 05:38 08/23/16 12:38 NT-Pro-B Natriuret Pep 408 Impressions: Chest X-Ray 08/20/16 14:33 IMPRESSION: NO ACUTE RADIOGRAPHIC FINDING IN THE CHEST. Chest/Abdomen CTA 08/20/16 16:44 IMPRESSION: 1. No evidence pulmonary embolus. 2. Left lower lobe pneumonia. 3. Mild mediastinal adenopathy likely reactive. 3 month follow-up chest CT is recommended. 4. Stable 3 cm right adrenal mass likely adenoma. Assessment & Plan - Diagnosis (1) Sepsis Qualifiers: Sepsis type: sepsis due to unspecified organism Qualified Code(s): A41.9 - Sepsis, unspecified organism Is this a current diagnosis for this admission?: YesPlan: Patient has sepsis from her pneumonia. She is growing MRSA from sputum cultures. (2) Left lower lobe pneumonia Qualifiers: Pneumonia type: due to unspecified organism Qualified Code(s): J18.1 - Lobar pneumonia, unspecified organism Is this a current diagnosis for this admission?: YesPlan: Patient is growing MRSA from sputum cultures. We'll continue the vancomycin and Levaquin. (3) Atrial fibrillation with rapid ventricular response Is this a current diagnosis for this admission?: YesPlan: Patient currently is rate controlled. (4) Neutropenia Qualifiers: Neutropenia type: unspecified Qualified Code(s): D70.9 - Neutropenia, unspecified Is this a current diagnosis for this admission?: YesPlan: Resolved. Patient will be taken off of neutropenic precautions. (5) Wegeners granulomatosis Is this a current diagnosis for this admission?: YesPlan: Continue with prednisone. The patient is followed by rheumatology in [facility] (6) Hypertension Qualifiers: Hypertension type: essential hypertension Qualified Code(s): I10 - Essential (primary) hypertension Is this a current diagnosis for this admission?: YesPlan: Blood pressure is under good control. (7) Obesity Qualifiers: Obesity severity: unspecified obesity severity Is this a current diagnosis for this admission?: Yes (8) Thrombocytopenia Is this a current diagnosis for this admission?: YesPlan: Resolved. (9) Type 1 diabetes mellitus with hyperglycemia, with long-term current use of insulin Is this a current diagnosis for this admission?: YesPlan: Continue with Lantus and sliding scale insulin. - Time Time Spent with patient: 25-34 minutes - Inpatient Certification Medical Necessity: Need for IV Antibiotics - Plan Summary Plan Summary: Patient is fairly weak and most likely will require short-term rehabilitation.
[2016-08-27] MEDS: INSULIN GLARGINE,HUM.REC.ANLOG 300 UNIT/3 ML INSULN.PEN SUBCUT SCH (17:20)
[2016-08-27 18:48] LABS: CREATININE RESULT 0.87 mg/dL (0.52-1.25)
[2016-08-27] MEDS: LEVOFLOXACIN 750 MG TABLET PO SCH (22:22)
[2016-08-28 05:24] LABS: HEMATOCRIT 43.8 % (36.0-47.0); HEMOGLOBIN 14.2 g/dL (12.0-15.5); HGB HCT DIFFERENCE -1.2; MEAN CORPUSCULAR HEMOGLOBIN 27.7 pg (27.0-33.4); MEAN CORPUSCULAR HGB CONC 32.4 g/dL (32.0-36.0); MEAN CORPUSCULAR VOLUME 86 fl (80-97); RED BLOOD COUNT 5.12 10^6/uL (3.72-5.28); RED CELL DISTRIBUTION WIDTH 14.6 % (11.5-14.0); WHITE BLOOD COUNT 15.6 10^3/uL (4.0-10.5)
[2016-08-28 05:26] LABS: ANION GAP 9 (5-19); BLOOD UREA NITROGEN 19 mg/dL (7-20); CALCIUM 9.3 mg/dL (8.4-10.2); CARBON DIOXIDE 30 mmol/L (22-30); CHLORIDE 100 mmol/L (98-107); GLUCOSE 231 mg/dL (75-110); POTASSIUM 4.3 mmol/L (3.6-5.0); SODIUM 138.7 mmol/L (137-145)
[2016-08-28] MEDS: GUAIFENESIN SYRP 200 MG/10 ML UDC PO PRN (05:35)
[2016-08-28] MEDS: LANSOPRAZOLE 30 MG TAB.RAP.DR PO SCH ×2 (05:36→17:53)
[2016-08-28] MEDS: VANCOMYCIN HCL 1,500 MG in DEXTROSE 5%-WATER 250 ML IV SCH (05:36)
[2016-08-28 05:44] LABS: BAND NEUTROPHILS % (MANUAL) 8 % (3-5); BASOPHILS % (MANUAL) 0 % (0-2); EOSINOPHILS % (MANUAL) 0 % (0-6); LYMPHOCYTES % (MANUAL) 8 % (13-45); TOTAL CELLS COUNTED 100
[2016-08-28 05:45] LABS: ANISOCYTOSIS SLIGHT; TOXIC GRANULATION SLIGHT; TOXIC VACUOLATION PRESENT
[2016-08-28] MEDS: INSULIN REG, HUMAN 100 UNIT/ML 3 ML VIAL (PYX) SUBCUT PRN ×4 (07:54→22:50)
[2016-08-28] MEDS: DILTIAZEM HCL 120 MG CAP.SR.24H PO SCH ×2 (10:30→22:50)
[2016-08-28] MEDS: FLUCONAZOLE 100 MG TABLET PO SCH (10:31)
[2016-08-28] MEDS: FUROSEMIDE 20 MG TABLET PO SCH (10:31)
[2016-08-28] MEDS: METOPROLOL SUCCINATE 25 MG TAB.SR.24H PO SCH ×2 (10:31→22:50)
[2016-08-28] MEDS: PREDNISONE 10 MG TABLET PO SCH ×3 (10:31→17:53)
[2016-08-28] MEDS: APIXABAN 5 MG TABLET PO SCH ×2 (10:31→17:53)
[2016-08-28] MEDS: FLUTICASONE NASAL SPRAY 50 MCG/SPRY 120 SPRAY/16 GM NASL SCH ×2 (10:33→22:51)
[2016-08-28] MEDS ORDERED: LINEZOLID 600 MG TABLET PO ONE (11:00)
--- NOTE | 2016-08-28 12:06 | PDOC PROGRESS REPORT ---
Subjective Progress Note for:: 08/28/16 Subjective:: Denies any complaints Physical Exam Vital Signs: Temp Pulse Resp BP Pulse Ox 98.0 F 91 18 131/68 H 96 08/28/16 07:40 08/28/16 07:40 08/28/16 07:40 08/28/16 07:40 08/28/16 07:40 Intake & Output 08/27/16 08/28/16 08/29/16 06:59 06:59 06:59 Intake Total 1953 2318 Output Total 4300 0875 Balance -9348 -1121 Weight 115.2 kg 111.4 kg General appearance: PRESENT: no acute distress Eye exam: PRESENT: conjunctiva pink. ABSENT: scleral icterus Mouth exam: PRESENT: moist, tongue midline Neck exam: ABSENT: JVD Respiratory exam: PRESENT: clear to auscultation jr. ABSENT: rales, rhonchi, wheezes Cardiovascular exam: PRESENT: irregular rhythm. ABSENT: diastolic murmur, rubs , systolic murmur GI/Abdominal exam: PRESENT: normal bowel sounds, soft. ABSENT: distended, guarding, mass, organolmegaly, rebound, tenderness Extremities exam: ABSENT: calf tenderness, clubbing, pedal edema Neurological exam: PRESENT: alert, awake, oriented to person, oriented to place , oriented to time, oriented to situation Psychiatric exam: PRESENT: appropriate affect Skin exam: PRESENT: dry, intact, warm. ABSENT: cyanosis, rash Results Laboratory Results: 08/28/16 04:37 08/28/16 04:37 08/27/16 08/28/16 08/28/16 18:15 04:37 04:37 WBC 15.6 H RBC 5.12 Hgb 14.2 Hct 43.8 MCV 86 MCH 27.7 MCHC 32.4 RDW 14.6 H Plt Count 204 Seg Neutrophils % Not Reportable Lymphocytes % Not Reportable Monocytes % Not Reportable Eosinophils % Not Reportable Basophils % Not Reportable Absolute Neutrophils Not Reportable Absolute Lymphocytes Not Reportable Absolute Monocytes Not Reportable Absolute Eosinophils Not Reportable Absolute Basophils Not Reportable Sodium 138.7 Potassium 4.3 Chloride 100 Carbon Dioxide 30 Anion Gap 9 BUN 19 Creatinine 0.87 0.60 Est GFR ( Amer) > 60 > 60 Est GFR (Non-Af Amer) > 60 > 60 Glucose 231 H Calcium 9.3 08/20/16 23:19 Sputum Gram Stain - Final 08/20/16 23:19 Sputum Sputum Culture - Final Mrsa (Meth Resis Staph Aureus) C.albicans/C.dubliniensis Normal Eun Absent 08/23/16 12:38 NT-Pro-B Natriuret Pep 408 Impressions: Chest X-Ray 08/20/16 14:33 IMPRESSION: NO ACUTE RADIOGRAPHIC FINDING IN THE CHEST. Chest/Abdomen CTA 08/20/16 16:44 IMPRESSION: 1. No evidence pulmonary embolus. 2. Left lower lobe pneumonia. 3. Mild mediastinal adenopathy likely reactive. 3 month follow-up chest CT is recommended. 4. Stable 3 cm right adrenal mass likely adenoma. Assessment & Plan - Diagnosis (1) Sepsis Qualifiers: Sepsis type: sepsis due to unspecified organism Qualified Code(s): A41.9 - Sepsis, unspecified organism Is this a current diagnosis for this admission?: YesPlan: Patient has sepsis from her pneumonia. She is growing MRSA from sputum cultures. (2) Left lower lobe pneumonia Qualifiers: Pneumonia type: due to unspecified organism Qualified Code(s): J18.1 - Lobar pneumonia, unspecified organism Is this a current diagnosis for this admission?: YesPlan: Patient is growing MRSA from sputum cultures. We'll change to by mouth Zyvox. (3) Atrial fibrillation with rapid ventricular response Is this a current diagnosis for this admission?: YesPlan: Patient currently is rate controlled. (4) Neutropenia Qualifiers: Neutropenia type: unspecified Qualified Code(s): D70.9 - Neutropenia, unspecified Is this a current diagnosis for this admission?: YesPlan: Resolved. (5) Wegeners granulomatosis Is this a current diagnosis for this admission?: YesPlan: Continue with prednisone. The patient is followed by rheumatology in [facility] (6) Hypertension Qualifiers: Hypertension type: essential hypertension Qualified Code(s): I10 - Essential (primary) hypertension Is this a current diagnosis for this admission?: YesPlan: Blood pressure is under good control with Toprol and diltiazem. (7) Obesity Qualifiers: Obesity severity: unspecified obesity severity Is this a current diagnosis for this admission?: Yes (8) Thrombocytopenia Is this a current diagnosis for this admission?: YesPlan: Resolved. (9) Type 1 diabetes mellitus with hyperglycemia, with long-term current use of insulin Is this a current diagnosis for this admission?: YesPlan: Continue with Lantus and sliding scale insulin. - Time Time Spent with patient: 25-34 minutes - Inpatient Certification Medical Necessity: Need Close Monitoring Due to Risk of Patient Decompensation - Plan Summary Plan Summary: We'll discharge to rehabilitation when a bed becomes available.
[2016-08-28] MEDS: INSULIN GLARGINE,HUM.REC.ANLOG 300 UNIT/3 ML INSULN.PEN SUBCUT SCH (17:54)
[2016-08-28] MEDS: LINEZOLID 600 MG TABLET PO SCH (22:50)
[2016-08-29 05:55] LABS: ANION GAP 8 (5-19); BLOOD UREA NITROGEN 21 mg/dL (7-20); CALCIUM 9.4 mg/dL (8.4-10.2); CARBON DIOXIDE 31 mmol/L (22-30); CHLORIDE 100 mmol/L (98-107); CREATININE RESULT 0.59 mg/dL (0.52-1.25); GLUCOSE 244 mg/dL (75-110); POTASSIUM 4.7 mmol/L (3.6-5.0)
[2016-08-29 05:59] LABS: HEMATOCRIT 44.3 % (36.0-47.0); HEMOGLOBIN 14.2 g/dL (12.0-15.5); HGB HCT DIFFERENCE -1.7; MEAN CORPUSCULAR HEMOGLOBIN 27.5 pg (27.0-33.4); MEAN CORPUSCULAR VOLUME 86 fl (80-97); RED BLOOD COUNT 5.15 10^6/uL (3.72-5.28); RED CELL DISTRIBUTION WIDTH 14.6 % (11.5-14.0); WHITE BLOOD COUNT 15.9 10^3/uL (4.0-10.5)
[2016-08-29 06:15] LABS: BASOPHILS % (MANUAL) 0 % (0-2); EOSINOPHILS % (MANUAL) 0 % (0-6); LYMPHOCYTES % (MANUAL) 2 % (13-45); TOTAL CELLS COUNTED 100
[2016-08-29 06:18] LABS: ANISOCYTOSIS SLIGHT; OVALOCYTES SLIGHT; TOXIC GRANULATION 1+; TOXIC VACUOLATION PRESENT
[2016-08-29] MEDS: LANSOPRAZOLE 30 MG TAB.RAP.DR PO SCH ×2 (06:55→17:38)
[2016-08-29] MEDS: INSULIN REG, HUMAN 100 UNIT/ML 3 ML VIAL (PYX) SUBCUT PRN ×4 (08:02→22:19)
[2016-08-29] MEDS: APIXABAN 5 MG TABLET PO SCH ×2 (10:24→17:38)
[2016-08-29] MEDS: PREDNISONE 10 MG TABLET PO SCH ×3 (10:24→17:38)
[2016-08-29] MEDS: FUROSEMIDE 20 MG TABLET PO SCH (10:24)
[2016-08-29] MEDS: METOPROLOL SUCCINATE 25 MG TAB.SR.24H PO SCH ×2 (10:25→22:19)
[2016-08-29] MEDS: DILTIAZEM HCL 120 MG CAP.SR.24H PO SCH ×2 (10:25→22:18)
[2016-08-29] MEDS: LINEZOLID 600 MG TABLET PO SCH ×2 (10:25→22:18)
[2016-08-29] MEDS: FLUTICASONE NASAL SPRAY 50 MCG/SPRY 120 SPRAY/16 GM NASL SCH ×2 (10:46→22:18)
--- NOTE | 2016-08-29 14:31 | PDOC PROGRESS REPORT ---
Subjective Progress Note for:: 08/29/16 Subjective:: Denies any complaints Physical Exam Vital Signs: Temp Pulse Resp BP Pulse Ox 97.8 F 92 20 137/71 H 96 08/29/16 11:50 08/29/16 11:50 08/29/16 11:50 08/29/16 11:50 08/29/16 11:50 Intake & Output 08/28/16 08/29/16 08/30/16 06:59 06:59 06:59 Intake Total 2318 2277 480 Output Total 5600 5250 400 Balance -7132 2972 80 Weight 111.4 kg 110.4 kg General appearance: PRESENT: no acute distress Eye exam: PRESENT: conjunctiva pink. ABSENT: scleral icterus Ear exam: PRESENT: normal external ear exam Mouth exam: PRESENT: moist, tongue midline Neck exam: ABSENT: JVD Respiratory exam: PRESENT: rhonchi - Coarse rhonchi bilaterally. Cardiovascular exam: PRESENT: irregular rhythm. ABSENT: diastolic murmur, rubs , systolic murmur GI/Abdominal exam: PRESENT: normal bowel sounds, soft. ABSENT: distended, guarding, mass, organolmegaly, rebound, tenderness Extremities exam: PRESENT: other - Patient has Brandon wrap in place both legs. Neurological exam: PRESENT: alert, awake, oriented to person, oriented to place , oriented to time, oriented to situation Psychiatric exam: PRESENT: appropriate affect Results Laboratory Results: 08/29/16 05:19 08/29/16 05:19 08/29/16 08/29/16 05:19 05:19 WBC 15.9 H RBC 5.15 Hgb 14.2 Hct 44.3 MCV 86 MCH 27.5 MCHC 32.0 RDW 14.6 H Plt Count 197 Seg Neutrophils % Not Reportable Lymphocytes % Not Reportable Monocytes % Not Reportable Eosinophils % Not Reportable Basophils % Not Reportable Absolute Neutrophils Not Reportable Absolute Lymphocytes Not Reportable Absolute Monocytes Not Reportable Absolute Eosinophils Not Reportable Absolute Basophils Not Reportable Sodium 139.0 Potassium 4.7 Chloride 100 Carbon Dioxide 31 H Anion Gap 8 BUN 21 H Creatinine 0.59 Est GFR ( Amer) > 60 Est GFR (Non-Af Amer) > 60 Glucose 244 H Calcium 9.4 08/20/16 23:19 Sputum Gram Stain - Final 08/20/16 23:19 Sputum Sputum Culture - Final Mrsa (Meth Resis Staph Aureus) C.albicans/C.dubliniensis Normal Eun Absent 08/23/16 12:38 NT-Pro-B Natriuret Pep 408 Impressions: Chest X-Ray 08/20/16 14:33 IMPRESSION: NO ACUTE RADIOGRAPHIC FINDING IN THE CHEST. Chest/Abdomen CTA 08/20/16 16:44 IMPRESSION: 1. No evidence pulmonary embolus. 2. Left lower lobe pneumonia. 3. Mild mediastinal adenopathy likely reactive. 3 month follow-up chest CT is recommended. 4. Stable 3 cm right adrenal mass likely adenoma. Assessment & Plan - Diagnosis (1) Sepsis Qualifiers: Sepsis type: sepsis due to unspecified organism Qualified Code(s): A41.9 - Sepsis, unspecified organism Is this a current diagnosis for this admission?: YesPlan: Patient has sepsis from her pneumonia. She is growing MRSA from sputum cultures. (2) Left lower lobe pneumonia Qualifiers: Pneumonia type: due to unspecified organism Qualified Code(s): J18.1 - Lobar pneumonia, unspecified organism Is this a current diagnosis for this admission?: YesPlan: Patient is growing MRSA from sputum cultures. Continue Zyvox. (3) Atrial fibrillation with rapid ventricular response Is this a current diagnosis for this admission?: YesPlan: Patient currently is rate controlled. (4) Neutropenia Qualifiers: Neutropenia type: unspecified Qualified Code(s): D70.9 - Neutropenia, unspecified Is this a current diagnosis for this admission?: YesPlan: Resolved. (5) Wegeners granulomatosis Is this a current diagnosis for this admission?: YesPlan: Continue with prednisone. The patient is followed by rheumatology in [facility] (6) Hypertension Qualifiers: Hypertension type: essential hypertension Qualified Code(s): I10 - Essential (primary) hypertension Is this a current diagnosis for this admission?: YesPlan: Blood pressure is under good control with Toprol and diltiazem. (7) Obesity Qualifiers: Obesity severity: unspecified obesity severity Is this a current diagnosis for this admission?: Yes (8) Thrombocytopenia Is this a current diagnosis for this admission?: YesPlan: Resolved. (9) Type 1 diabetes mellitus with hyperglycemia, with long-term current use of insulin Is this a current diagnosis for this admission?: YesPlan: Continue with Lantus and sliding scale insulin. - Time Time Spent with patient: 25-34 minutes - Inpatient Certification Medical Necessity: Need for IV Antibiotics - Plan Summary Plan Summary: she is waiting for rehabilitation bed for strengthening.
[2016-08-29] MEDS: INSULIN GLARGINE,HUM.REC.ANLOG 300 UNIT/3 ML INSULN.PEN SUBCUT SCH (17:39)
[2016-08-30] MEDS: LANSOPRAZOLE 30 MG TAB.RAP.DR PO SCH (06:23)
[2016-08-30] MEDS: INSULIN REG, HUMAN 100 UNIT/ML 3 ML VIAL (PYX) SUBCUT PRN ×2 (08:23→11:54)
[2016-08-30] MEDS: METOPROLOL SUCCINATE 25 MG TAB.SR.24H PO SCH (09:42)
[2016-08-30] MEDS: APIXABAN 5 MG TABLET PO SCH (09:43)
[2016-08-30] MEDS: DILTIAZEM HCL 120 MG CAP.SR.24H PO SCH (09:43)
[2016-08-30] MEDS: FUROSEMIDE 20 MG TABLET PO SCH (09:44)
[2016-08-30] MEDS: PREDNISONE 10 MG TABLET PO SCH (09:44)
[2016-08-30] MEDS: FLUTICASONE NASAL SPRAY 50 MCG/SPRY 120 SPRAY/16 GM NASL SCH (09:46)
[2016-08-30] MEDS: LINEZOLID 600 MG TABLET PO SCH (09:48)
--- NOTE | 2016-08-30 12:12 | PDOC DISCHARGE SUMMARY ---
General - Admit/Disc Date/PCP Admission Date/Primary Care Provider: 08/20/16 18:54 Alayna Levin Discharge Date: 08/30/16 - Discharge Diagnosis (1) Sepsis Is this a current diagnosis for this admission?: YesSummary: Secondary to MRSA pneumonia. (2) Left lower lobe pneumonia Is this a current diagnosis for this admission?: YesSummary: Cultures positive for MRSA treated initially with vancomycin initially and now Zyvox (3) Atrial fibrillation with rapid ventricular response Is this a current diagnosis for this admission?: YesSummary: Rate controlled with diltiazem and metoprolol. (4) Neutropenia Is this a current diagnosis for this admission?: YesSummary: Thought to probably be secondary to her Imuran treatment which is currently being held. (5) Wegeners granulomatosis Is this a current diagnosis for this admission?: YesSummary: Follow by Dr. Cruz of rheumatology in [facility] (6) Hypertension Is this a current diagnosis for this admission?: Yes (7) Obesity Is this a current diagnosis for this admission?: Yes (8) Thrombocytopenia Is this a current diagnosis for this admission?: YesSummary: Most likely secondary to Imuran which is being held. (9) Type 1 diabetes mellitus with hyperglycemia, with long-term current use of insulin Is this a current diagnosis for this admission?: Yes - Additional Information Resuscitation Status: Full Code - Patient's sister by the name of jameson in [place] is the surrogate decision maker Discharge Diet: Diabetic Discharge Activity: Activity As Tolerated, Balance Activity w/Rest, Energy Conservation, Walk Frequently Home Medications: Acetaminophen [Tylenol Extra Strength 500 mg Tablet] 1,000 mg PO DAILYP PRN 05/27 Albuterol Sulfate [Albuterol Sulfate 2.5mg/3 mL] 1 vial NEB RTQ4HP PRN 08/20/16 Albuterol Sulfate [Proair HFA] 1 puff IH Q4HP PRN 08/20/16 Amlodipine Besylate [Norvasc 10 mg Tablet] 10 mg PO DAILY 08/20/16 Fluticasone Propionate [Flonase Nasal Pinnacle 50 Mcg/Pinnacle 16 gm] 1 spray NASL Q12 08/20/16 Insulin Aspart [Novolog Flexpen] 11 units SQ QID 08/20/16 Insulin Glargine,Hum.rec.anlog [Lantus Solostar] 40 units SQ DAILY 08/20/16 Prednisone 10 mg PO TID 08/20/16 Metformin HCl [Metformin HCl ER] 500 mg PO QPM 08/21/16 Potassium Chloride 10 meq PO DAILY 08/21/16 Apixaban [Eliquis 5 mg Tablet] 5 mg PO BID #60 tablet 08/30/16 Diltiazem HCl [Cardizem Cd 120 mg Capsule] 120 mg PO Q12 #30 cap.sr.24h Furosemide [Lasix 20 mg Tablet] 20 mg PO DAILY #30 tablet 08/30/16 Levalbuterol HCl [Xopenex Neb 1.25 mg/3 ml Ampul] 1.25 mg NEB RTQ4HP PRN #120 vial.neb 08/30/16 Linezolid [Zyvox 600 mg Tablet] 600 mg PO Q12 #10 tablet 08/30/16 Metoprolol Succinate [Toprol Xl 25 mg Tab.sr] 25 mg PO Q12 #60 tab.sr.24h History of Present Illness History of Present Illness: ANGELA PILLAI is a 51 year old female with history of Joana's granulomatosis who is on immunosuppressants who presented with shortness of breath. She was found to have a pneumonia and also was found to be in atrial fibrillation with a rapid ventricular rate. Patient was started on diltiazem drip for her age fibrillation and she was started on broad-spectrum antibiotics because of her immunosuppressive state. She also was found to be neutropenic. Hospital Course Hospital Course: 51-year-old female who has Joana's granulomatosis who presented with shortness of breath. The patient was found to be neutropenic, in atrial fibrillation with rapid ventricular rate as well as pneumonia. The patient was admitted and started on IV diltiazem with control of her rate. The patient eventually required to be on both diltiazem and metoprolol for rate control. The patient also was found to have pneumonia and she was treated with broad- spectrum antibiotics and cultures eventually grew out MRSA. The patient was changed from vancomycin to Zyvox. Her oxygenation improved and she was no longer requiring oxygen. The patient was seen by hematology because of neutropenia. Patient also was evaluated cardiology because of age fibrillation. She was also seen by general surgery because of leg ulcers. Patient has leg ulcers on her right lateral leg as well as her left anterior leg and these were treated with local wound care as well as keeping the legs elevated to reduce the edema which made these worse. Patient was felt to be stable to go home and will go home with home health for dressing changes and also will go to the wound clinic. Patient will get the scope therapy as an outpatient. The patient is to follow-up with her primary care in 1 week and also with retail link analyst in 2 weeks. Patient is to hold her Imuran until she follows up with her retail link analyst given her neutropenia and from cytopenia. Physical Exam Vital Signs: Temp Pulse Resp BP Pulse Ox 97.6 F 110 H 18 120/79 94 08/30/16 10:06 08/30/16 10:06 08/30/16 10:06 08/30/16 10:06 08/30/16 10:06 Intake & Output 08/29/16 08/30/16 08/31/16 06:59 06:59 06:59 Intake Total 2277 1482 Output Total 5250 3200 Balance -2973 -1718 Weight 110.4 kg 110.3 kg General appearance: PRESENT: no acute distress Eye exam: PRESENT: conjunctiva pink. ABSENT: scleral icterus Mouth exam: PRESENT: moist, tongue midline Neck exam: ABSENT: JVD Respiratory exam: PRESENT: clear to auscultation jr. ABSENT: rales, rhonchi, wheezes Cardiovascular exam: PRESENT: RRR. ABSENT: diastolic murmur, rubs, systolic murmur GI/Abdominal exam: PRESENT: normal bowel sounds, soft. ABSENT: distended, guarding, mass, organolmegaly, rebound, tenderness Neurological exam: PRESENT: alert, awake, oriented to person, oriented to place , oriented to time, oriented to situation Skin exam: PRESENT: other - Dressings in place on bilateral legs. Results Laboratory Results: 08/29/16 05:19 08/29/16 05:19 08/23/16 12:38 NT-Pro-B Natriuret Pep 408 Impressions: Chest X-Ray 08/20/16 14:33 IMPRESSION: NO ACUTE RADIOGRAPHIC FINDING IN THE CHEST. Chest/Abdomen CTA 08/20/16 16:44 IMPRESSION: 1. No evidence pulmonary embolus. 2. Left lower lobe pneumonia. 3. Mild mediastinal adenopathy likely reactive. 3 month follow-up chest CT is recommended. 4. Stable 3 cm right adrenal mass likely adenoma. Qualifiers PATEINT BEING DISCHARGED WITH ANY OF THE FOLLOWING DIAGNOSIS?: No Plan Discharge Plan: Patient is to be discharged home with home health. Follow-up with dermatology in 2 weeks. Primary care in 1 week. Wound clinic in the next week. Time Spent: Greater than 30 Minutes
[2016-08-30 13:14] VITALS: BP 131/71
== END 2016-08-30 14:36 | disposition home health service (06) | DRG 871 ==
LOC: ER 14:08 → EH 18:54 → UNDOADMIN 19:14 → ICU 22:35 → 3S 08-21 19:00
PROC: 3E0F73Z Introduction of Anti-inflammatory into Respiratory Tract, Via Natural or Artificial Opening (ICD-10-PCS; principal; 2016-08-21)
DX: A41.9 Sepsis, unspecified organism (principal); J15.212 Pneumonia due to Methicillin resistant Staphylococcus aureus; M31.30 Wegener's granulomatosis without renal involvement; Z68.42 Body mass index [BMI] 45.0-49.9, adult; I48.91 Unspecified atrial fibrillation; D70.9 Neutropenia, unspecified; D69.59 Other secondary thrombocytopenia; T45.1X5A Adverse effect of antineoplastic and immunosuppressive drugs, initial encounter; I10 Essential (primary) hypertension; E10.65 Type 1 diabetes mellitus with hyperglycemia; D35.01 Benign neoplasm of right adrenal gland; I87.8 Other specified disorders of veins; E66.9 Obesity, unspecified; Z79.4 Long term (current) use of insulin; Z79.899 Other long term (current) drug therapy
CPT/HCPCS: 36415; 71010; 71275; 80048; 80053; 80202; 81001; 82550; 82553; 82565; 82962; 83036; 83735; 83880; 84443; 84484; 85025; 85027; 85379; 87040; 87070; 87077; 87086; 87186; 87205; 93005; 93010; 93306; 94640; 96365; 96366; 96372; 96375; 99291; J0743; J1160; J1650; J1720; J1815; J1956; J2550; J3370; J3490; J7030; J7060; J7500; J7512

== ENCOUNTER → 2019-09-23 | Outpatient (CLI) | payer OTHER ==
--- NOTE | 2019-09-23 11:07 | WOMENS IMAGING REPORT ---
EXAM DESCRIPTION: 3D SCREENING MAMMO BILAT COMPLETED DATE/TIME: 09/23/2019 10:04 am REASON FOR STUDY: Z12.39 ENCOUNTER FOR SCREENING MAMMOGRAM FOR MALIGNANT NEOPLASM OF BREAST Z12.31 ENCNTR SCREEN MAMMOGRAM FOR MALIGNANT NEOPLASM OF GEREMIAS COMPARISON: None. EXAM PARAMETERS: Views: Standard craniocaudal and mediolateral oblique views of each breast recorded using digital acquisition and breast tomosynthesis. Read with the assistance of CAD. .[facility] - [employer] Making Machine Operator Version 9.2 LIMITATIONS: None. FINDINGS: No suspicious masses, suspicious calcifications or architectural distortion. No areas of c oncern. IMPRESSION: NEGATIVE MAMMOGRAM. BIRADS 1. BREAST DENSITY: a. The breasts are almost entirely fatty. BIRAD: ASSESSMENT: 1 NEGATIVE RECOMMENDATION: ROUTINE SCREENING COMMENT: The patient has been notified of the results by letter per MQSA requirements. Additional no tification policies are in place for contacting patient with suspicious or incomplete findings. Quality ID #225: The [employer] recommends an annual screening mammogram for women aged 40 years or over. This facility utilizes a reminder system to ensure that all patients receive reminder letters, and/or direct phone calls for appointments. This includes reminders for routine scr eening mammograms, diagnostic mammograms, or other Breast Imaging Interventions when appropriate. Th is patient will be placed in the appropriate reminder system. TECHNICAL DOCUMENTATION: FINDING NUMBER: (1) ASSESSMENT: (1) JOB ID: [id number] 2010 [employer]- All Rights Reserved Reading location - IP/workstation name: [email or web address]
== END ==
LOC: WI 10:00
PROVIDERS: ATTEND Physician Assistant
DX: Z12.31 Encounter for screening mammogram for malignant neoplasm of breast (principal)
CPT/HCPCS: 77063; 77067